=== PATIENT | male | born 1965 | race Asian ===

== ENCOUNTER 2018-09-01 11:48 | Emergency (ER) | payer OTHER ==
[~2018-09-01] VITALS: Ht 175.3 cm; Wt 89.8 kg
--- NOTE | 2018-09-01 12:16 | ED Upper Extremity ---
General Stated Complaint: FALL,R SHOULDER PAIN Source: patient Exam Limitations: no limitations History of Present Illness Date Seen by Provider: Sep 01, 2018 Time Seen by Provider: 12:12 Initial Comments To ER with right shoulder pain. Began last night after he fell landing on the right elbow. There was no direct injury such as landing on the right shoulder. However he has pain in the right shoulder, not in the elbow. At rest there is no pain in the right shoulder. The pain is with abduction and forward flexion of the arm at the elbow. Onset: just prior to arrival Severity: moderate Pain/Injury Location: right shoulder Method of Injury: fell Modifying Factors: Worse With Movement Allergies and Home Medications Patient Home Medication List Home Medication List Reviewed: Yes Review of Systems Constitutional: see HPI EENTM: see HPI Respiratory: no symptoms reported Cardiovascular: no symptoms reported Genitourinary: no symptoms reported Musculoskeletal: see HPI, joint pain Skin: no symptoms reported Psychiatric/Neurological: No Symptoms Reported Past Faxqrbs-Xknzcv-Ztsfju Hx Patient Social History Recent Foreign Travel: No Contact w/Someone Who Travel: No Physical Exam Vital Signs Vital Signs - First Documented 09/01/18 12:05 Temp 97.5 Pulse 82 Resp 18 B/P (MAP) 146/107 (120) Pulse Ox 98 Capillary Refill : Height, Weight, BMI Height: '" Weight: lbs. oz. kg; BMI Method: General Appearance: WD/WN, no apparent distress HEENT: PERRL/EOMI, normal ENT inspection Neck: non-tender, full range of motion Respiratory: no respiratory distress, no accessory muscle use Shoulder: limited ROM (minimal tenderness to palpation over the acromioclavicular joint. Most of the pain is at the anterior and lateral shoulder. No pain posteriorly.) Elbow/Forearm: normal inspection, non-tender, Right Wrist: Yes normal inspection, Yes non-tender Hand: normal inspection, non-tender Progress/Results/Core Measures Results/Orders My Orders Orders - ESTHELA POWERS APRN Shoulder, Right, 3 Views (09/01/18 12:08) Ct Extremity Upper Right Wo (09/01/18 12:54) Vital Signs/I&O 09/01/18 12:05 Temp 97.5 Pulse 82 Resp 18 B/P (MAP) 146/107 (120) Pulse Ox 98 Diagnostic Imaging Diagonstic Imaging: Xray Comments NAME: SYDNEY KENNY [facility] REC#: [id number] PT STATUS: REG ER : 1965 PHYSICIAN: ESTHELA POWERS APRN ADMIT DATE: 09/01/18/ER Draft Date of Exam:09/01/18 SHOULDER, RIGHT, 3 VIEWS EXAMINATION: Right shoulder radiographs, 3 views. COMPARISON: None. HISTORY: 53-year-old male, fall. Right shoulder pain. FINDINGS: The acromioclavicular joint is normally aligned. There are no prominent acromioclavicular degenerative changes. The scapular Y-view is suboptimally positioned. The humeral head does project anteriorly on the scapular Y view. Correlation for shoulder dislocation would be recommended. There is an ossification adjacent to the inferior glenoid. This potentially could relate to an osteophyte; however, particularly if there is clinical concern for dislocation, this potentially could relate to a fracture fragment. There is no otherwise identified potential acute fracture. IMPRESSION: 1. Suboptimal positioning of the scapular Y view. The humeral head does project anteriorly. Recommend correlation for possible shoulder dislocation. If further imaging is needed, dedicated axillary view or CT right shoulder without contrast is recommended. 2. Ossification adjacent to the inferior glenoid potentially relating to an osteophyte although particularly in the setting of shoulder dislocation, a fracture would be difficult to exclude. 3. Normally aligned acromioclavicular joint. Dictated on workstation # [id number] Dict: 09/01/18 1225 Trans: 09/01/18 1240 [facility] [id number] Interpreted by: RUBI BAILON MD Electronically signed by: NAME: SYDNEY KENNY [facility] REC#: [id number] PT STATUS: REG ER : 1965 PHYSICIAN: ESTHELA POWERS APRN ADMIT DATE: 09/01/18/ER Draft Date of Exam:09/01/18 CT EXTREMITY UPPER RIGHT WO PROCEDURE: CT right shoulder without contrast. TECHNIQUE: Multiple contiguous axial images were obtained through the right shoulder without the use of intravenous contrast. Sagittal and coronal reformations were then performed. Date: September 01, 2018. Indication: 53-year-old male, fall. Right shoulder pain. Difficulties with range of motion. Comparison: Right shoulder radiographs September 01, 2018. Findings: The humeral head is normally positioned relative to the glenoid. There is no pronounced glenohumeral joint space loss. There is an osteophyte extending off the inferior glenoid. There is no fracture of the inferior glenoid or otherwise noted. The acromioclavicular joint is normally aligned. There are moderate acromion clavicular degenerative changes with osteophytes projecting approximately 2-3 mm below the joint margin. There is no os acromiale. The visualized portions of the right lung are clear. There is nondiagnostic direct assessment of the rotator cuff tendons on CT. There is no identified fatty atrophy of the rotator cuff musculature. There is no identified obvious fluid collection. Impression: 1. Normally positioned humeral head relative to the glenoid. 2. No acute fracture. 3. Mild glenohumeral osteoarthritis with osteophyte extending off the inferior glenoid. 4. Moderate acromioclavicular degenerative changes with 2-3 mm undersurface osteophytes. No os acromiale. 5. Nondiagnostic direct assessment of the rotator cuff tendons on CT. No prominent fatty atrophy of the rotator cuff musculature. Dictated on workstation # [id number] Dict: 09/01/18 1311 Trans: 09/01/18 1341 [facility] [id number] Interpreted by: RUBI BAILON MD Electronically signed by: Departure Impression Primary Impression: Internal derangement of right shoulder Disposition: 01 HOME, SELF-CARE Condition: Stable Departure-Patient Inst. Decision time for Depature: 13:47 Referrals: NO,LOCAL PHYSICIAN (PCP/Family) Primary Care Physician Patient Instructions: Shoulder Pain (DC), Shoulder Sprain Add. Discharge Instructions: 1. If pain persists beyond the end of this week follow-up with your regular physician to discuss obtaining an MRI to better evaluate the ligaments and labrum in the shoulder. In the meantime ice pack, Tylenol and Motrin, activity as tolerated. ESTHELA POWERS APRN Sep 01, 2018 12:15
--- NOTE | 2018-09-01 12:40 | Diagnostic Imaging Report ---
EXAMINATION: Right shoulder radiographs, 3 views. COMPARISON: None. HISTORY: 53-year-old male, fall. Right shoulder pain. FINDINGS: The acromioclavicular joint is normally aligned. There are no prominent acromioclavicular degenerative changes. The scapular Y-view is suboptimally positioned. The humeral head does project anteriorly on the scapular Y view. Correlation for shoulder dislocation would be recommended. There is an ossification adjacent to the inferior glenoid. This potentially could relate to an osteophyte; however, particularly if there is clinical concern for dislocation, this potentially could relate to a fracture fragment. There is no otherwise identified potential acute fracture. IMPRESSION: 1. Suboptimal positioning of the scapular Y view. The humeral head does project anteriorly. Recommend correlation for possible shoulder dislocation. If further imaging is needed, dedicated axillary view or CT right shoulder without contrast is recommended. 2. Ossification adjacent to the inferior glenoid potentially relating to an osteophyte although particularly in the setting of shoulder dislocation, a fracture would be difficult to exclude. 3. Normally aligned acromioclavicular joint. Dictated by: Dictated on workstation # [id number]
--- NOTE | 2018-09-01 13:41 | Diagnostic Imaging Report ---
PROCEDURE: CT right shoulder without contrast. TECHNIQUE: Multiple contiguous axial images were obtained through the right shoulder without the use of intravenous contrast. Sagittal and coronal reformations were then performed. Date: September 01, 2018. Indication: 53-year-old male, fall. Right shoulder pain. Difficulties with range of motion. Comparison: Right shoulder radiographs September 01, 2018. Findings: The humeral head is normally positioned relative to the glenoid. There is no pronounced glenohumeral joint space loss. There is an osteophyte extending off the inferior glenoid. There is no fracture of the inferior glenoid or otherwise noted. The acromioclavicular joint is normally aligned. There are moderate acromion clavicular degenerative changes with osteophytes projecting approximately 2-3 mm below the joint margin. There is no os acromiale. The visualized portions of the right lung are clear. There is nondiagnostic direct assessment of the rotator cuff tendons on CT. There is no identified fatty atrophy of the rotator cuff musculature. There is no identified obvious fluid collection. Impression: 1. Normally positioned humeral head relative to the glenoid. 2. No acute fracture. 3. Mild glenohumeral osteoarthritis with osteophyte extending off the inferior glenoid. 4. Moderate acromioclavicular degenerative changes with 2-3 mm undersurface osteophytes. No os acromiale. 5. Nondiagnostic direct assessment of the rotator cuff tendons on CT. No prominent fatty atrophy of the rotator cuff musculature. Dictated by: Dictated on workstation # [id number]
[2018-09-01 14:01] VITALS: BP 136/88
== END 2018-09-01 14:01 | disposition home or self-care (01) ==
LOC: ER 11:50
DX: M24.811 Other specific joint derangements of right shoulder, not elsewhere classified (principal); W19.XXXA Unspecified fall, initial encounter
CPT/HCPCS: 73030; 73200

== ENCOUNTER → 2018-09-05 | Outpatient (CLI) | payer OTHER ==
--- NOTE | 2018-09-05 15:02 | Diagnostic Imaging Report ---
PROCEDURE: MRI right joint upper extremity without contrast. TECHNIQUE: Multiplanar, multisequence MR imaging of the right shoulder was performed without contrast. INDICATION: Right shoulder pain after fall. COMPARISON: Right shoulder radiographs from 09/01/2018. FINDINGS: Rotator cuff: Full-thickness tear of the majority of the supraspinatus with the torn fibers retracted to the level of the midhumeral head. A few of the posterior fibers may remain intact. Partial-thickness tearing of the anterior insertional fibers of the infraspinatus are present in its bursal surface. No rotator cuff muscle atrophy. Subscapularis and teres minor are intact. Glenoid labrum: By non-arthrogram imaging, the glenoid labrum appears intact. No para-labral cyst. Long head of biceps: Long head of biceps is normally positioned within the bicipital groove. The intracapsular segment is intact. Bones and cartilage: Humeral head is normal in morphology without fracture or focal osseous lesion. No glenohumeral chondromalacia. Mild hypertrophic degenerative changes of the acromioclavicular joint. Soft tissues: No glenohumeral joint effusion. No MRI findings to suggest adhesive capsulitis. Fluid in the subacromial and subdeltoid space is compatible with full-thickness rotator cuff tear. IMPRESSION: 1. Full-thickness and near-complete tear of the supraspinatus with the torn fibers retracted to the level of the midhumeral head. There is no associated muscle belly atrophy. 2. Low-grade partial-thickness bursal-sided tearing of the anterior infraspinatus is also present. 3. Long head of biceps is intact. Dictated by: Dictated on workstation # [id number]
== END ==
LOC: RAD 12:43
PROVIDERS: ATTEND Nurse Practitioner Family
DX: S46.011A Strain of muscle(s) and tendon(s) of the rotator cuff of right shoulder, initial encounter (principal); W19.XXXA Unspecified fall, initial encounter
CPT/HCPCS: 73221

== ENCOUNTER 2020-08-03 15:40 | Inpatient (IN) | payer OTHER ==
[~2020-08-03] VITALS: Ht 175 cm; Wt 89.2 kg
[2020-08-03] MEDS ORDERED: RT-ALBUTEROL INHALER HFA (VENTOLIN HFA) 18 GM IH ONE (15:55)
[2020-08-03] MEDS ORDERED: LACTATED RINGERS 1,000 ML IV ONE ×3 (16:12→17:31)
--- NOTE | 2020-08-03 16:43 | Diagnostic Imaging Report ---
CLINICAL INDICATION: Patient with Covid and low oxygen saturations. Exam: Portable chest x-ray upright view. Comparisons: None. Findings: There are diffuse groundglass opacifications throughout both lungs concerning for infiltrate. The right heart border is partially obscured. There is no pleural effusion or pneumothorax. Pulmonary vasculature and cardiac silhouette are within normal limits for portable projection. IMPRESSION: There are diffuse bilateral lung groundglass infiltrates concerning for pneumonia. Dictated by: Dictated on workstation # [id number]
[2020-08-03 16:58] LABS: BASOPHILS % (AUTO) 0 % (0-10); EOSINOPHILS % (AUTO) 0 % (0-10); HEMATOCRIT 44 % (40-54); HEMOGLOBIN 15.1 g/dL (13.3-17.7); LYMPHOCYTES # (AUTO) 0.4 10^3/uL (1.0-4.0); LYMPHOCYTES % (AUTO) 4 % (12-44); MEAN CORPUSCULAR HEMOGLOBIN 31 pg (25-34); MEAN CORPUSCULAR HGB CONC 35 g/dL (32-36); MEAN CORPUSCULAR VOLUME 90 fL (80-99); MEAN PLATELET VOLUME 10.3 fL (9.0-12.2); MONOCYTES # (AUTO) 0.3 10^3/uL (0.0-1.0); MONOCYTES % (AUTO) 3 % (0-12); NEUTROPHILS % (AUTO) 93 % (42-75); PLATELET COUNT 254 10^3/uL (130-400); WHITE BLOOD COUNT 11.8 10^3/uL (4.3-11.0)
[2020-08-03 17:06] LABS: ALBUMIN 3.6 GM/DL (3.2-4.5); BILIRUBIN,TOTAL 1.3 MG/DL (0.1-1.0); CALCIUM 9.3 MG/DL (8.5-10.1); CREATININE SERUM 1.34 MG/DL (0.60-1.30); POTASSIUM 3.7 MMOL/L (3.6-5.0); TOTAL PROTEIN 7.2 GM/DL (6.4-8.2)
--- NOTE | 2020-08-03 17:17 | ED General ---
General Chief Complaint: Respiratory Problems Stated Complaint: COVID POSITIVE;LOW O2 SAT Nursing Triage Note: PT CO OF SOA, PT TO ROOM 9 PER W/C PT HAS COVID, STATES SAT 71%, SAT RA 64% PT PALE, RR 38, HAD TEMP EARLIER TODAY 102.2. SX STARTED ON THURSDAY 07/26 AND TESTED + ON SUNDAY. Nursing Sepsis Screen: Possible Sepsis Risk Source of Information: Patient Exam Limitations: No Limitations History of Present Illness Date Seen by Provider: Aug 03, 2020 Time Seen by Provider: 15:50 Initial Comments Here with report of significant shortness of air. Patient is Covid positive with persistent fever. Symptoms started on 07/26/2020. Tested positive a few days later. He has been trying nqfk-uaq-qnjycag therapy and rest at home and that is not helping. noted that his O2 sats were in the 70s and he was in the 60s here on arrival and pale. Noted to be tachycardic and ill. Otherwise very healthy and has no significant medical problems. Patient has been on azithromycin, Medrol Dosepak, albuterol MDI and benzonatate. Timing/Duration: 1 Week Severity: Moderate, Severe Associated Systoms: No Chest Pain; Cough, Fever/Chills; No Nausea/Vomiting; Shortness of Air, Weakness Allergies and Home Medications Allergies Coded Allergies: No Known Drug Allergies (Unverified , 08/03/20) Patient Home Medication List Home Medication List Reviewed: Yes Review of Systems Review of Systems Constitutional: see HPI, chills, fever, weakness EENTM: no symptoms reported Respiratory: cough, short of breath Cardiovascular: No chest pain, No edema Gastrointestinal: No abdominal pain, No nausea, No vomiting Genitourinary: no symptoms reported Musculoskeletal: muscle pain; No neck pain Skin: no symptoms reported All Other Systems Reviewed Negative Unless Noted: Yes Past Eyvbhfq-Wjggdd-Leamta Hx Past Med/Social Hx: Reviewed Nursing Past Med/Soc Hx Patient Social History Alcohol Use: Rarely Uses Recreational Drug Use: No Smoking Status: Never a Smoker Type Used: Smokeless Tobacco Recent Foreign Travel: No Contact w/Someone Who Travel: No Recent Infectious Disease Expo: No Recent Hopitalizations: No Seasonal Allergies Seasonal Allergies: Yes Past Medical History Surgeries: Yes (R KNEE ARTHROSCOPY,L SHOULDER SCOPE) Respiratory: No Cardiac: No Neurological: No Genitourinary: No Gastrointestinal: No Musculoskeletal: No Endocrine: No HEENT: No Cancer: No Psychosocial: No Blood Disorders: No Family Medical History Reviewed Nursing Family Hx Physical Exam-Suspected Sepsis Physical Exam Vital Signs Vital Signs - First Documented 08/03/20 08/03/20 08/03/20 15:45 16:00 16:08 Temp 36.4 Pulse 112 Resp 38 B/P (MAP) 122/76 (91) Pulse Ox 92 O2 Delivery OxyMask O2 Flow Rate 15.00 FiO2 100 Capillary Refill : Less Than 3 Seconds Blood Pressure Mean: 91 Height, Weight, BMI Height: 5'9.00" Weight: 198lbs. oz. 89.775473gj; 29.00 BMI Method:Stated General Appearance: WD/WN, Moderate Distress HEENT: PERRL/EOMI, Pharynx Normal Neck: Non Tender, Supple Respiratory: Crackles (Bilateral versus), Respiratory Distress Cardiovascular: No Murmur, Tachycardia Gastrointestinal: Non Tender, Soft Back: Normal Inspection, No CVA Tenderness, No Vertebral Tenderness Extremity: Normal Range of Motion, Non Tender Neurologic/Psychiatric: Alert, Oriented x3 Skin: normal color, warm/dry Focused Exam Lactate Level 08/03/20 16:00: Lactic Acid Level Laboratory Tests Test 08/03/20 16:00 Progress/Results/Core Measures Suspected Sepsis Recent Fever Within 48 Hours: Yes Infection Criteria Present: Documented Infection New/Unexplained Altered Menta: No Sepsis Screen: Possible Sepsis Risk SIRS Temperature: Pulse: 112 Respiratory Rate: 38 Laboratory Tests 08/03/20 16:00: White Blood Count 11.8H Blood Pressure 122 /76 Mean: 91 08/03/20 16:00: Laboratory Tests 08/03/20 16:00: Creatinine 1.34H, Platelet Count 254, Total Bilirubin 1.3H Results/Orders Lab Results Laboratory Tests Test 08/03/20 16:00 Range/Units White Blood Count 11.8 H 4.3-11.0 10^3/uL Red Blood Count 4.86 4.30-5.52 10^6/uL Hemoglobin 15.1 13.3-17.7 g/dL Hematocrit 44 40-54 % Mean Corpuscular Volume 90 80-99 fL Mean Corpuscular Hemoglobin 31 25-34 pg Mean Corpuscular Hemoglobin Concent 35 32-36 g/dL Red Cell Distribution Width 12.7 10.0-14.5 % Platelet Count 254 130-400 10^3/uL Mean Platelet Volume 10.3 9.0-12.2 fL Immature Granulocyte % (Auto) 1 % Neutrophils (%) (Auto) 93 H 42-75 % Lymphocytes (%) (Auto) 4 L 12-44 % Monocytes (%) (Auto) 3 0-12 % Eosinophils (%) (Auto) 0 0-10 % Basophils (%) (Auto) 0 0-10 % Neutrophils # (Auto) 11.0 H 1.8-7.8 10^3/uL Lymphocytes # (Auto) 0.4 L 1.0-4.0 10^3/uL Monocytes # (Auto) 0.3 0.0-1.0 10^3/uL Eosinophils # (Auto) 0.0 0.0-0.3 10^3/uL Basophils # (Auto) 0.0 0.0-0.1 10^3/uL Immature Granulocyte # (Auto) 0.1 0.0-0.1 10^3/uL Sodium Level 133 L 135-145 MMOL/L Potassium Level 3.7 3.6-5.0 MMOL/L Chloride Level 97 L 98-107 MMOL/L Carbon Dioxide Level 25 21-32 MMOL/L Anion Gap 11 5-14 MMOL/L Blood Urea Nitrogen 18 7-18 MG/DL Creatinine 1.34 H 0.60-1.30 MG/DL Estimat Glomerular Filtration Rate 56 BUN/Creatinine Ratio 13 Glucose Level 159 H 70-105 MG/DL Calcium Level 9.3 8.5-10.1 MG/DL Corrected Calcium 9.6 8.5-10.1 MG/DL Total Bilirubin 1.3 H 0.1-1.0 MG/DL Aspartate Amino Transf (AST/SGOT) 54 H 5-34 U/L Alanine Aminotransferase (ALT/SGPT) 107 H 0-55 U/L Alkaline Phosphatase 127 40-136 U/L Total Protein 7.2 6.4-8.2 GM/DL Albumin 3.6 3.2-4.5 GM/DL My Orders Orders - ELAINE GRIMES MD Albuterol Inhaler (Ventolin Hfa) (08/03/20 15:55) Lactated Ringers (Lr 1000 Ml Iv Solution (08/03/20 16:12) Cbc With Automated Diff (08/03/20 16:16) Comprehensive Metabolic Panel (08/03/20 16:16) Blood Culture (08/03/20 16:16) Sputum Culture (08/03/20 16:16) Urinalysis (08/03/20 16:16) Urine Culture (08/03/20 16:16) Protime With Inr (08/03/20 16:16) Partial Thromboplastin Time (08/03/20 16:16) Chest 1 View, Ap/Pa Only (08/03/20 16:16) Ed Iv/Invasive Line Start (08/03/20 16:16) Ed Iv/Invasive Line Start (08/03/20 16:16) Vital Signs Adult Sepsis Patie Q15M (08/03/20 16:16) O2 (08/03/20 16:16) Remove Rings In Anticipation O (08/03/20 16:16) Lactic Acid Analyzer (08/03/20 16:16) Lactated Ringers (Lr 1000 Ml Iv Solution (08/03/20 16:16) Convalescent Plasma (08/03/20 16:16) Abo Rh Type (08/03/20 16:16) Procalcitonin (Pct) (08/03/20 16:48) Hs C Reactive Protein (08/03/20 16:53) Manual Differential (08/03/20 16:00) Medications Given in ED Current Medications Medications Dose Ordered Sig/Johnnie Route Start Time Stop Time Status Last Admin Dose Admin Lactated Ringer's 1,000 ml @ 0 mls/hr Q0M ONCE IV 08/03/20 16:16 08/03/20 16:21 DC 08/03/20 16:21 1,000 MLS/HR Vital Signs/I&O 08/03/20 08/03/20 08/03/20 15:45 16:00 16:08 Temp 36.4 Pulse 112 Resp 38 B/P (MAP) 122/76 (91) Pulse Ox 92 98 O2 Delivery OxyMask OxyMask Vapotherm O2 Flow Rate 15.00 15.00 40.00 FiO2 100 Capillary Refill : Less Than 3 Seconds Blood Pressure Mean: 91 Progress Note : Progress Note Seen and evaluated. IV, labs, blood cultures and lactic acid ordered. Patient placed on high flow O2 and placed in prone position to get O2 saturations in the mid 80s. Albuterol MDI 4 puffs via spacer given. Patient initiated on Vapotherm at 40 L and 100% which did improve his sats to the mid 90s. After x- ray, patient's O2 saturations had improved into the upper 90s and he was able to tolerate in the sitting position on Vapotherm at max settings. Monitor patient. 1646: I did discuss the case with Dr. Hager. I have discussed risk and benefits of convalescent plasma as well as remdesivir. Patient has consented to both after discussion. I have ordered convalescent plasma and Dr. Hager will order remdesivir. Patient to be admitted to the ICU. We are pending labs currently and he has been on antibiotics so we will initiate Zosyn initially given his fairly pronounced disease and concerns for pneumonia. I did inform the patient of the need for admission and he has agreed. Admit, inpatient status. Diagnostic Imaging Diagonstic Imaging: Xray Plain Films/CT/US/NM/MRI: chest Comments [facility], [place] NAME: SYDNEY KENNY [facility] REC#: [id number] PT STATUS: REG ER : 1965 PHYSICIAN: ELAINE GIRMES MD ADMIT DATE: 08/03/20/ER Draft Date of Exam:08/03/20 CHEST 1 VIEW, AP/PA ONLY CLINICAL INDICATION: Patient with Covid and low oxygen saturations. Exam: Portable chest x-ray upright view. Comparisons: None. Findings: There are diffuse groundglass opacifications throughout both lungs concerning for infiltrate. The right heart border is partially obscured. There is no pleural effusion or pneumothorax. Pulmonary vasculature and cardiac silhouette are within normal limits for portable projection. IMPRESSION: There are diffuse bilateral lung groundglass infiltrates concerning for pneumonia. Dictated on workstation # [id number] Dict: 08/03/20 1639 Trans: 08/03/20 1643 [facility] [id number] Interpreted by: KUMAR PATTON MD Electronically signed by: Departure Communication (Admissions) Time/Spoke to Admitting Phy: 16:46 Impression Primary Impression: Pneumonia due to COVID-19 virus Additional Impression: Respiratory failure with hypoxia Qualified Codes: J96.01 - Acute respiratory failure with hypoxia Disposition: 09 ADMITTED INPATIENT Condition: Critical Admissions Decision to Admit Reason: Admit from ER (General) Decision to Admit/Date: Aug 03, 2020 Time/Decision to Admit Time: 16:46 Departure-Patient Inst. Referrals: FANTA MURPHY DO (PCP/Family) Primary Care Physician ELAINE GRIMES MD Aug 03, 2020 17:17
[2020-08-03 17:20] LABS: INR 1.2 (0.8-1.4); PROTHROMBIN TIME PATIENT 15.8 SEC (12.2-14.7)
[2020-08-03] MEDS ORDERED: NS (IVPB) 250 ML ONE ×2 (17:32→20:08)
[2020-08-03] MEDS ORDERED: PIPERACILLIN/TAZO 4.5 GM VIAL (ZOSYN) IV ONE (17:32)
[2020-08-03] MEDS ORDERED: PIPERACILLIN SODIUM/TAZOBACTAM 4.5 GM in NS (IVPB) 100 ML IV ONE (17:45)
[2020-08-03] MEDS ORDERED: ENOXAPARIN 100 MG/1 ML (LOVENOX) SYR SC ONE (18:00)
[2020-08-03 18:06] LABS: LYMPHOCYTES % (MANUAL) 5 %; MONOCYTES % (MANUAL) 1 %; NEUTROPHILS % (MANUAL) 94 %; RBC MORPH NORMAL
[2020-08-03] MEDS ORDERED: REMDESIVIR INJ 200 MG in NS (IVPB) 210 ML IV ONE (18:15)
--- NOTE | 2020-08-03 18:22 | NUR ---
UPDATED ON PT CONDITION, PT TO GO TO ICU FOR FURTHER CARE.
--- NOTE | 2020-08-03 19:21 | NUR ---
PATIENT ARRIVAL TO THE ICU. VERBALIZED UNDERSTANDING OF TREATMENT. ASSESSMENT COMPLETED.
--- NOTE | 2020-08-03 19:40 | NUR ---
SPOKE WITH JESÚS. INFORMATION PROVIDED TO THIS RN AND QUESTIONS ANSWERED FOR THE . PASSWORD SET UP FOR ACCOUNT AT THIS TIME.
[2020-08-03 19:55] VITALS: BP 122/76
[2020-08-03] MEDS ORDERED: ACETAMINOPHEN 500 MG TAB (TYLENOL) PO PRN (20:00)
[2020-08-03] MEDS ORDERED: ONDANSETRON 4 MG/2 ML (SDV) Z0FRAN IVP PRN (20:00)
[2020-08-03] MEDS ORDERED: LACTATED RINGERS 1,000 ML IV SCH (20:00)
[2020-08-03] MEDS ORDERED: EPINEPHrine 1 MG INJECTION 4 MG in NS (IVPB) 248 ML IV SCH (20:15)
[2020-08-03] MEDS ORDERED: RT-ALBUTEROL INHALER HFA (VENTOLIN HFA) 18 GM IH PRN (20:15)
[2020-08-03 20:26] VITALS: BP 133/93
[2020-08-03 20:30] VITALS: BP 125/92
[2020-08-03 20:42] VITALS: BP 125/92
[2020-08-03 21:30] VITALS: BP 131/93
[2020-08-03] MEDS: NOREPINEPHRINE 4 MG/250 ML 250 ML IV SCH (21:36)
[2020-08-03] MEDS: VASOPRESSIN INJECTION 20 UNIT in NS (IVPB) 100 ML IV SCH (21:36)
[2020-08-03] MEDS: BENZONATATE 100 MG (TESSALON) CAPSULE PO SCH (23:06)
[2020-08-03] MEDS: RT-ALBUTEROL INHALER HFA (VENTOLIN HFA) 18 GM IH SCH (23:07)
[2020-08-04] MEDS: PIPERACILLIN/TAZOBACTAM (BULK) 4.5 GM in NS (IVPB) 100 ML IV SCH ×3 (00:19→17:35)
--- NOTE | 2020-08-04 01:30 | NUR ---
O2 SATURATIONS DECREASING TO THE LOW 90'S. WENT INTO ROOM, ASSESSED PATIENT. BREATH SOUNDS CONTINUE TO BE DIMINISHED. SPOKE IN REGARDS TO PRONING IN ATTEMPT TO HELP WITH O2 SATURATION. AGREEABLE TO TREATMENT PLAN. INCREASE IN FEVER TO 37.9 C. COLD WASH CLOTHES PLACED AND AIR IN ROOM TURNED DOWN AT THIS TIME. O2 SATURATIONS INCREASED TO THE MID 90'S WITH PRONING. WILL CONTINUE TO MONITOR.
[2020-08-04] MEDS ORDERED: guaiFENesin SYRUP 100 MG/5 ML 10 ML (ROBITUSSIN SF) ONE (02:17)
[2020-08-04] MEDS ORDERED: ACETAMINOPHEN 500 MG TAB (TYLENOL) ONE (02:17)
[2020-08-04] MEDS: ACETAMINOPHEN 500 MG TAB (TYLENOL) PO PRN (02:25)
[2020-08-04] MEDS ORDERED: guaiFENesin SYRUP 100 MG/5 ML 10 ML (ROBITUSSIN SF) PO ONE (02:30)
[2020-08-04 03:23] LABS: BASOPHILS % (AUTO) 0 % (0-10); EOSINOPHILS % (AUTO) 0 % (0-10); HEMATOCRIT 39 % (40-54); HEMOGLOBIN 13.5 g/dL (13.3-17.7); LYMPHOCYTES # (AUTO) 0.4 10^3/uL (1.0-4.0); LYMPHOCYTES % (AUTO) 4 % (12-44); MEAN CORPUSCULAR HEMOGLOBIN 31 pg (25-34); MEAN CORPUSCULAR HGB CONC 35 g/dL (32-36); MEAN CORPUSCULAR VOLUME 89 fL (80-99); MEAN PLATELET VOLUME 9.7 fL (9.0-12.2); MONOCYTES # (AUTO) 0.3 10^3/uL (0.0-1.0); MONOCYTES % (AUTO) 3 % (0-12); NEUTROPHILS # (AUTO) 8.8 10^3/uL (1.8-7.8); NEUTROPHILS % (AUTO) 92 % (42-75); PLATELET COUNT 229 10^3/uL (130-400); WHITE BLOOD COUNT 9.6 10^3/uL (4.3-11.0)
[2020-08-04 03:32] LABS: ALBUMIN 3.3 GM/DL (3.2-4.5); CHLORIDE 102 MMOL/L (98-107); POTASSIUM 3.9 MMOL/L (3.6-5.0); SODIUM 136 MMOL/L (135-145)
[2020-08-04 03:34] LABS: CALCIUM 8.9 MG/DL (8.5-10.1)
[2020-08-04 03:35] LABS: GLUCOSE 159 MG/DL (70-105); TOTAL PROTEIN 6.5 GM/DL (6.4-8.2)
[2020-08-04 03:36] LABS: CARBON DIOXIDE 21 MMOL/L (21-32)
[2020-08-04 03:38] LABS: ALKALINE PHOSPHATASE 117 U/L (40-136); PHOSPHORUS 2.1 MG/DL (2.3-4.7)
[2020-08-04 03:39] LABS: CREATININE SERUM 0.94 MG/DL (0.60-1.30); GFR ESTIMATED > 60
[2020-08-04 03:40] LABS: BUN/CREATININE RATIO 17
[2020-08-04 03:41] LABS: ALANINE AMINOTRANSFERASE 81 U/L (0-55); MAGNESIUM 1.8 MG/DL (1.6-2.4)
[2020-08-04] MEDS ORDERED: IBUPROFEN 600 MG (MOTRIN) TAB PO ONE (04:14)
--- NOTE | 2020-08-04 04:14 | Pulmonary Consultation ---
History of Present Illness History of Present Illness Date Seen by Provider: Aug 04, 2020 Time Seen by Provider: 04:09 Date of Admission History of Present Illness 55yo who tested positive on COVID on presented to ED secondary to worsening SOB and fevers. He was found to be hypoxic with Sp02 64% and tachycardic. Fever was 102.2. Symptoms started on Sunday. No prior hx like this in the past. Patient has been on azithromycin, Medrol Dosepak, albuterol MDI and benzonatate. Denies CP N/V. Allergies and Home Medications Allergies Coded Allergies: No Known Drug Allergies (Unverified , 08/03/20) Home Medications Acetaminophen 325 Mg Tablet, 325-650 MG PO Q6H PRN for PAIN-MILD (1-4) OR TEMPATURE, (Reported) Albuterol Sulfate 18 Gm Hfa.aer.ad, 2 PUFF INH Q6H PRN for SHORTNESS OF BREATH, (Reported) Ascorbic Acid 250 Mg Tab.chew, 250 MG PO DAILY, (Reported) Aspirin 81 Mg Tablet.dr, 81 MG PO DAILY, (Reported) Azithromycin 250 Mg Tablet, 250 MG PO DAILY, (Reported) FILLED 08-03-2020 #6/5 DAY SUPPLY Benzonatate 100 Mg Capsule, 100 MG PO Q8H PRN for COUGH, (Reported) Cholecalciferol (Vitamin D3) 25 Mcg Tablet, 25 MCG PO DAILY, (Reported) Loratadine 10 Mg Tablet, 10 MG PO DAILY PRN for ALLERGY SYMPTOMS, (Reported) Methylprednisolone 4 Mg Tab.ds.pk, MG PO UD, (Reported) FILLED 07-30-2020 #21/6 DAY SUPPLY Triamcinolone Acetonide 10.8 Ml [place], 1 SPRAY NSEACH DAILY PRN for ALLERGY SYMPTOMS, (Reported) Zinc 50 Mg Tablet, 50 MG PO DAILY, (Reported) Past [place]-Eextfv-Ptybav Hx Past Med/Social Hx: Reviewed Nursing Past Med/Soc Hx Patient Social History Alcohol Use: Rarely Uses Recreational Drug Use: No Smoking Status: Never a Smoker Type Used: Smokeless Tobacco Recent Foreign Travel: No Contact w/Someone Who Travel: No Recent Infectious Disease Expo: No Recent Hopitalizations: No Seasonal Allergies Seasonal Allergies: Yes Past Medical History Surgeries: Yes (R KNEE ARTHROSCOPY,L SHOULDER SCOPE) Respiratory: No Cardiac: No Neurological: No Genitourinary: No Gastrointestinal: No Musculoskeletal: No Endocrine: No HEENT: No Cancer: No Psychosocial: No Blood Disorders: No Family Medical History Reviewed Nursing Family Hx Review of Systems Time Seen by Provider: 04:13 Constitutional: Fever, Chills, Sweats, Weakness, Malaise, Other Eyes: No: Pain, Vision change, Conjunctivae inflammation, Eyelid inflammation, Other, Redness ENT: Nose congestion; No: Ear pain, Ear discharge, Nose pain, Nose discharge, Mouth pain, Mouth swelling, Throat pain, Throat swelling, Other Respiratory: Cough, Dry, Shortness of breath, SOB with excertion; No: Wheezing, Hemoptysis, Pleuritic Pain, Sputum, Wheezing, Other Cardiovascular: Paroxysmal Noc. Dyspnea; No: Chest Pain, Palpitations, Orthopnea, Edema, Lt Headedness, Other Gastrointestinal: No: Nausea, Vomiting, Abdominal Pain, Diarrhea, Constipation, Melena, Hematochezia, Other Genitourinary: No Dysuria, No Frequency, No Incontinence, No Hematuria, No Retention, No Other Sepsis Event Evaluation Height, Weight, BMI Height: 5'9.00" Weight: 198lbs. oz. 89.555298ye; 29.00 BMI Method:Stated Exam Exam Vital Signs Date Time Temp Pulse Resp B/P (MAP) Pulse Ox O2 Delivery O2 Flow Rate FiO2 08/04/20 03:43 39.5 Vapotherm 40.00 100.00 08/04/20 02:36 37.7 Vapotherm 40.00 100.00 08/04/20 02:25 37.9 08/04/20 01:50 93 Vapotherm 40.00 100 08/04/20 01:41 37.9 Vapotherm 40.00 100.00 08/04/20 01:00 97 08/04/20 00:36 97 Vapotherm 40.00 100 08/03/20 23:15 Vapotherm 40.00 100.00 08/03/20 23:13 Vapotherm 40.00 90.00 08/03/20 21:35 36.4 Vapotherm 40.00 80.00 08/03/20 21:30 36.6 74 22 131/93 97 Vapotherm 40.00 90 08/03/20 20:42 36.6 72 16 125/92 97 Vapotherm 40.00 90 08/03/20 20:30 36.4 78 16 125/92 (103) 98 Vapotherm 40.00 90.00 08/03/20 20:30 36.4 Vapotherm 40.00 90.00 08/03/20 20:26 36.4 73 19 133/93 98 Vapotherm 40.00 100 08/03/20 19:55 112 100 08/03/20 19:30 89 08/03/20 19:21 Vapotherm 40.00 100 08/03/20 19:21 Vapotherm 40.00 100.00 08/03/20 19:21 36.4 Vapotherm 40.00 100.00 08/03/20 18:50 93 20 148/96 96 08/03/20 17:54 94 Vapotherm 40.00 100 08/03/20 16:08 98 Vapotherm 40.00 100 08/03/20 16:00 92 OxyMask 15.00 08/03/20 15:45 36.4 112 38 122/76 (91) OxyMask 15.00 I & O 08/04/20 07:00 Intake Total 2400 ml Output Total 1150 ml Balance 1250 ml Height & Weight Height: 5'9.00" Weight: 198lbs. oz. 89.520156ot; 29.00 BMI Method:Stated General Appearance: WD/WN, Moderate Distress HEENT: PERRL/EOMI, Pharynx Normal Neck: Non Tender, Supple Respiratory: Crackles (Bilateral versus), Respiratory Distress Cardiovascular: No Murmur, Tachycardia Capillary Refill: Less Than 3 Seconds Gastrointestinal: normal bowel sounds, non tender, soft Extremity: Normal Range of Motion, Non Tender Neurologic/Psychiatric: Alert, Oriented x3 Skin: Normal Color, Warm/Dry Lymphatic: No Adenopathy Results Lab Laboratory Tests 08/03/20 16:00 08/04/20 03:12 Assessment/Plan Assessment/Plan Acute respiratory failure secondary to COVID PNA and ARDS -Start Remdesivir and CVP -Continue Zosyn -Awake proning -start BiPAP -CXR - shows extensive bilateral infiltrates LEONARDO FAIRBANKS DO Aug 04, 2020 04:14
[2020-08-04] MEDS: IBUPROFEN 600 MG (MOTRIN) TAB PO SCH ×3 (04:22→18:20)
[2020-08-04] MEDS: NOREPINEPHRINE 4 MG/250 ML 250 ML IV SCH ×3 (04:26→19:00)
[2020-08-04] MEDS: MAGNESIUM 1 GM/100 ML IVPB 100 ML IV SCH (04:27)
[2020-08-04] MEDS: VASOPRESSIN INJECTION 20 UNIT in NS (IVPB) 100 ML IV SCH ×3 (04:27→21:22)
[2020-08-04] MEDS: POTASSIUM CL 10MEQ/50ML IVPB 50 ML IV SCH (04:27)
[2020-08-04] MEDS: KCL 20 MEQ TAB (K-DUR) PO SCH (04:28)
[2020-08-04 04:55] LABS: ABG BASE EXCESS 2.1 MMOL/L (-2.5-2.5); ABG OXYGEN SATURATION 96 % (94-100); ABG PCO2 40 MMHG (35-45); ABG PH 7.43 (7.37-7.43); ABG PO2 84 MMHG (79-93); ABG TCO2 27.3 MMOL/L (21.0-31.0)
[2020-08-04 04:57] LABS: ALLENS TEST POSITIVE; INSPIRED O2 100% VAPODERM; PATIENT TEMP 36.8; VENTILATOR NO
[2020-08-04] MEDS: RT-ALBUTEROL INHALER HFA (VENTOLIN HFA) 18 GM IH SCH ×4 (08:02→22:21)
[2020-08-04] MEDS: dexAMETHasone INJECTION 20 MG in NS (IVPB) 50 ML IV SCH (08:15)
[2020-08-04] MEDS: PANTOPRAZOLE 40 MG (PROTONIX) VIAL IV SCH (08:16)
[2020-08-04] MEDS: BENZONATATE 100 MG (TESSALON) CAPSULE PO SCH ×3 (08:16→20:34)
[2020-08-04] MEDS ORDERED: dexAMETHasone 6 MG TAB (DECADRON) PO SCH (09:00)
[2020-08-04 14:08] VITALS: BP 121/67
[2020-08-04] MEDS ORDERED: ZINC50TA58 PO (14:10)
[2020-08-04] MEDS ORDERED: BENZ-36 PO (14:10)
[2020-08-04] MEDS ORDERED: ALBU18HF2 INH (14:10)
[2020-08-04] MEDS ORDERED: METH4TAB10 PO (14:10)
[2020-08-04] MEDS ORDERED: LORA10TA76 PO (14:10)
[2020-08-04] MEDS ORDERED: ASCO250T17 PO (14:10)
[2020-08-04] MEDS ORDERED: ACET325T38 PO (14:10)
[2020-08-04] MEDS ORDERED: AZIT250T12 PO (14:10)
[2020-08-04] MEDS ORDERED: ASPI-1238 PO (14:10)
[2020-08-04] MEDS ORDERED: CHOL10002 PO (14:10)
[2020-08-04] MEDS ORDERED: TRIA10.8 NSEACH (14:10)
--- NOTE | 2020-08-04 14:11 | NUR ---
UNABLE TO REACH PT ON HIS ROOM PHONE- I TRIED THE CELL # WE HAVE ON FILE AND HIS (JSEÚS) ANSWERED. JESÚS LISTED HIS MEDICATIONS, AND I WENT THRU THE EXT MED HISTORY TO COMPLETE THE MED REC ACCORDING TO JESÚS THE PT DOESNT TAKE ANY MAINTENANCE MEDICATIONS- AND THE ONLY THING HE HAS BEEN ON RECENTLY IS DUE TO COVID OTC MEDS: NASACORT PRN CLARITIN PRN TYLENOL VIT C VIT D ZINC ASPIRIN 81
[2020-08-04] MEDS ORDERED: ENOXAPARIN 40 MG/0.4 ML (LOVENOX) SYR SC SCH (14:15)
[2020-08-04] MEDS: REMDESIVIR INJ 100 MG in NS (IVPB) 230 ML IV SCH (18:15)
[2020-08-04] MEDS: guaiFENesin/DM (ROBITUSSIN DM) 10 ML UDC PO PRN (20:35)
[2020-08-05] MEDS: IBUPROFEN 600 MG (MOTRIN) TAB PO SCH (00:06)
[2020-08-05] MEDS: PIPERACILLIN/TAZOBACTAM (BULK) 4.5 GM in NS (IVPB) 100 ML IV SCH ×4 (00:06→23:30)
[2020-08-05] MEDS: NOREPINEPHRINE 4 MG/250 ML 250 ML IV SCH (01:41)
[2020-08-05] MEDS: RT-ALBUTEROL INHALER HFA (VENTOLIN HFA) 18 GM IH SCH ×6 (02:30→22:45)
[2020-08-05] MEDS: VASOPRESSIN INJECTION 20 UNIT in NS (IVPB) 100 ML IV SCH (04:13)
[2020-08-05 04:54] LABS: CHLORIDE 103 MMOL/L (98-107); POTASSIUM 4.2 MMOL/L (3.6-5.0); SODIUM 139 MMOL/L (135-145)
[2020-08-05 04:55] LABS: CALCIUM 9.3 MG/DL (8.5-10.1)
[2020-08-05 04:56] LABS: GLUCOSE 176 MG/DL (70-105)
[2020-08-05 04:57] LABS: CARBON DIOXIDE 20 MMOL/L (21-32)
[2020-08-05 04:59] LABS: PHOSPHORUS 3.2 MG/DL (2.3-4.7)
[2020-08-05 05:00] LABS: CREATININE SERUM 1.07 MG/DL (0.60-1.30); GFR ESTIMATED > 60
[2020-08-05 05:01] LABS: BUN/CREATININE RATIO 22
[2020-08-05 05:01] LABS: BASOPHILS % (AUTO) 0 % (0-10); EOSINOPHILS % (AUTO) 0 % (0-10); HEMATOCRIT 41 % (40-54); HEMOGLOBIN 13.9 g/dL (13.3-17.7); LYMPHOCYTES # (AUTO) 0.5 10^3/uL (1.0-4.0); LYMPHOCYTES % (AUTO) 4 % (12-44); MEAN CORPUSCULAR HEMOGLOBIN 30 pg (25-34); MEAN CORPUSCULAR HGB CONC 34 g/dL (32-36); MEAN CORPUSCULAR VOLUME 90 fL (80-99); MEAN PLATELET VOLUME 10.3 fL (9.0-12.2); MONOCYTES # (AUTO) 0.3 10^3/uL (0.0-1.0); MONOCYTES % (AUTO) 2 % (0-12); NEUTROPHILS # (AUTO) 11.8 10^3/uL (1.8-7.8); NEUTROPHILS % (AUTO) 93 % (42-75); PLATELET COUNT 250 10^3/uL (130-400); WHITE BLOOD COUNT 12.7 10^3/uL (4.3-11.0)
[2020-08-05 05:02] LABS: MAGNESIUM 2.2 MG/DL (1.6-2.4)
[2020-08-05] MEDS: KCL 20 MEQ TAB (K-DUR) PO SCH (05:17)
[2020-08-05] MEDS: MAGNESIUM 1 GM/100 ML IVPB 100 ML IV SCH (05:17)
[2020-08-05] MEDS: POTASSIUM CL 10MEQ/50ML IVPB 50 ML IV SCH (05:17)
--- NOTE | 2020-08-05 05:30 | Pulmonary Progress Note ---
Subjective Time Seen by a Provider: 05:25 Subjective/Events-last exam Pt is requiring 100% Vapotherm. Sepsis Event Evaluation Height, Weight, BMI Height: 5'9.00" Weight: 198lbs. oz. 89.983764te; 29.00 BMI Method:Stated Focused Exam Lactate Level 08/03/20 16:00: Lactic Acid Level 2.19*H 08/03/20 18:22: Lactic Acid Level 1.35 Exam Exam Vital Signs Date Time Temp Pulse Resp B/P (MAP) Pulse Ox O2 Delivery O2 Flow Rate FiO2 08/05/20 04:46 35.1 08/05/20 04:00 Vapotherm 40.00 100 08/05/20 04:00 92 14 98/77 96 Vapotherm 40.00 100.00 08/05/20 03:00 93 22 107/70 95 Vapotherm 40.00 100.00 08/05/20 02:30 91 40.00 100 08/05/20 02:00 80 19 112/69 96 Vapotherm 40.00 100.00 08/05/20 01:00 70 19 108/73 93 Vapotherm 40.00 100.00 08/05/20 01:00 71 08/05/20 00:15 35.1 08/05/20 00:00 92 Vapotherm 40.00 100 08/05/20 00:00 99 37 123/89 94 Vapotherm 40.00 100.00 08/04/20 23:00 95 29 123/78 89 Vapotherm 40.00 100.00 08/04/20 22:22 91 Vapotherm 40.00 100 08/04/20 22:00 65 26 96/56 Vapotherm 40.00 100.00 08/04/20 21:00 89 17 116/75 92 Vapotherm 40.00 100.00 08/04/20 20:04 35.7 08/04/20 20:00 92 Vapotherm 40.00 100 08/04/20 20:00 85 29 113/75 92 Vapotherm 40.00 100.00 08/04/20 19:00 78 27 115/45 94 Vapotherm 40.00 100.00 08/04/20 19:00 100 08/04/20 18:59 92 Vapotherm 40.00 100 08/04/20 18:00 84 35 119/59 100 Vapotherm 40.00 100.00 08/04/20 17:00 87 35 116/78 91 Vapotherm 40.00 90.00 08/04/20 16:16 35.5 08/04/20 16:03 35.4 90 30 116/78 92 Vapotherm 40.00 100.00 08/04/20 16:00 92 Vapotherm 40.00 100 08/04/20 15:17 90 Vapotherm 40.00 100 08/04/20 15:00 90 42 118/73 89 Vapotherm 40.00 90.00 08/04/20 14:08 35.6 88 90 90 08/04/20 14:00 85 46 140/79 88 Vapotherm 40.00 90.00 08/04/20 13:00 88 45 128/85 90 Vapotherm 40.00 90.00 08/04/20 12:37 97 08/04/20 12:00 94 Vapotherm 40.00 90 08/04/20 12:00 107 32 137/84 90 Vapotherm 40.00 90.00 08/04/20 11:34 92 Vapotherm 40.00 90 08/04/20 11:26 35.6 20 121/67 9 Vapotherm 40.00 90.00 08/04/20 11:00 79 121/67 90 Vapotherm 40.00 90.00 08/04/20 10:00 76 118/69 94 Vapotherm 40.00 90.00 08/04/20 09:00 84 25 119/78 98 Vapotherm 40.00 90.00 08/04/20 08:29 77 08/04/20 08:03 93 Vapotherm 40.00 100 08/04/20 08:00 94 Vapotherm 40.00 90 08/04/20 08:00 35.6 70 30 123/76 96 Vapotherm 40.00 90.00 08/04/20 07:00 21 112/73 99 Vapotherm 40.00 100.00 08/04/20 06:33 38.5 Vapotherm 40.00 100.00 08/04/20 06:00 102 25 132/79 96 Vapotherm 40.00 100.00 I & O 08/05/20 07:00 Intake Total 1490 ml Output Total 1350 ml Balance 140 ml Height & Weight Height: 5'9.00" Weight: 198lbs. oz. 89.781578mi; 29.00 BMI Method:Stated General Appearance: WD/WN, Moderate Distress HEENT: PERRL/EOMI, Pharynx Normal Neck: Non Tender, Supple Respiratory: Crackles (Bilateral versus), Respiratory Distress Cardiovascular: No Murmur, Tachycardia Capillary Refill: Less Than 3 Seconds Extremity: Normal Range of Motion, Non Tender Neurologic/Psychiatric: Alert, Oriented x3 Results Lab Laboratory Tests 08/03/20 16:00 08/04/20 03:12 08/05/20 03:35 08/05/20 03:55 Assessment/Plan Assessment/Plan Acute respiratory failure secondary to COVID PNA -Remdesivir -Start BiPAP -Currently on Vapotherm 100% -Continue to Prone -Decadron continue at 20mg daily for now -Repeat DDIMer, ferritin -Increase Lovenox to 40 Q 12 -CVP -Continue Zosyn -BiPAP PRN Metabolic acidosis -Repeat LA -Check UA LEONARDO FAIRBANKS DO Aug 05, 2020 05:30
[2020-08-05 06:36] LABS: BILIRUBIN,URINE NEGATIVE (NEGATIVE); CLARITY,URINE CLEAR; COLOR,URINE YELLOW; GLUCOSE, URINE (UA) NEGATIVE (NEGATIVE); KETONES,URINE TRACE (NEGATIVE); LEUKOCYTE ESTERASE ,URINE NEGATIVE (NEGATIVE); NITRITE,URINE NEGATIVE (NEGATIVE); PH,URINE 5.5 (5-9); PROTEIN,URINE 1+ (NEGATIVE)
[2020-08-05 06:49] LABS: AMORPHOUS SEDIMENT,UR MOD AMOR URATES /LPF; BACTERIA,URINE FEW /HPF; RBC,URINE 0-2 /HPF; SQUAMOUS EPITHELIAL CELL,UR 0-2 /HPF; URIC ACID CRYSTALS,URINE MODERATE /LPF
[2020-08-05] MEDS: LACTATED RINGERS 1,000 ML IV SCH ×2 (08:09→20:51)
[2020-08-05] MEDS: PANTOPRAZOLE 40 MG (PROTONIX) VIAL IV SCH (08:10)
[2020-08-05] MEDS: dexAMETHasone INJECTION 20 MG in NS (IVPB) 50 ML IV SCH (08:10)
[2020-08-05] MEDS: BENZONATATE 100 MG (TESSALON) CAPSULE PO SCH ×3 (08:10→20:47)
[2020-08-05] MEDS: ENOXAPARIN 40 MG/0.4 ML (LOVENOX) SYR SC SCH ×2 (08:11→20:47)
[2020-08-05] MEDS: inSUlin ASPART (NovoLOG) 1 UNIT/0.01 ML (CHARGE PER UNIT) SQ SCH ×3 (12:29→20:47)
[2020-08-05 14:47] VITALS: BP 109/72
--- NOTE | 2020-08-05 16:05 | NUR ---
"RD ASSESSMENT PMHx: no significant PMH PT INTERACTION: Note pt is currently in COVID isolation, per chart review. Note all diet information for nutrition assessment is per Regina RN or per chart review. Regina states current appetite appears okay, but pt has lost sense of taste. Note avg PO intake 56% x1d, per chart review. Regina states no issues with nausea, vomiting, constipation, or diarrhea that she is aware of. Note last BM was 08/04, and pt not currently on bowel regimen per chart review. Note unable to determine recent wt hx, per chart review. ABNORMAL NUTRITION-RELATED LAB VALUES LOW: HIGH: BUN 24; glu 176 Est. kcal needs: 7533-4880 kcal | 15-20 kcal/k g Est. Pro needs: 75-94 g Pro | 0.8-1.0 g Pro/kg PES STATEMENT: Inadequate oral intake (NI-2.1) related to loss of appetite and taste changes, as evidenced by chart review, communication with RN, and avg PO intake 56% x1d. INTERVENTION: Continue with current diet order of Regular diet. Add Ensure Enlive (vary) to meals TID, for increased kcal intake. Provides 350 kcal and 20 g Pro per serving. Would encourage pt to eat when able. Will continue to follow and reassess as pt needs, intake, and status change. Dasha Frances, MS RD LD"
[2020-08-05] MEDS: REMDESIVIR INJ 100 MG in NS (IVPB) 230 ML IV SCH (18:08)
[2020-08-05] MEDS: guaiFENesin/DM (ROBITUSSIN DM) 10 ML UDC PO PRN (21:03)
[2020-08-06] MEDS: RT-ALBUTEROL INHALER HFA (VENTOLIN HFA) 18 GM IH SCH ×6 (02:27→21:03)
[2020-08-06 02:29] VITALS: BP 109/72
[2020-08-06 04:21] LABS: ABG BASE EXCESS 1.6 MMOL/L (-2.5-2.5); ABG OXYGEN SATURATION 92 % (94-100); ABG PCO2 38 MMHG (35-45); ABG PH 7.44 (7.37-7.43); ABG PO2 62 MMHG (79-93)
[2020-08-06 04:22] LABS: ALLENS TEST YES-POS; INSPIRED O2 50%; PATIENT TEMP 35.2; VENTILATOR NO
--- NOTE | 2020-08-06 04:36 | Pulmonary Progress Note ---
Subjective Time Seen by a Provider: 04:31 Sepsis Event Evaluation Height, Weight, BMI Height: 5'9.00" Weight: 198lbs. oz. 89.136040gp; 29.00 BMI Method:Stated Focused Exam Lactate Level 08/05/20 06:12: Lactic Acid Level 2.26*H 08/05/20 08:15: Lactic Acid Level 2.01*H 08/05/20 10:45: Lactic Acid Level 1.55 Exam Exam Vital Signs Date Time Temp Pulse Resp B/P (MAP) Pulse Ox O2 Delivery O2 Flow Rate FiO2 08/06/20 02:29 73 33 98 45.00 08/06/20 01:00 70 08/06/20 00:00 75 32 137/82 96 NIV Bilevel 50.00 08/05/20 23:33 35.7 08/05/20 23:33 93 NIV Bilevel 50.00 08/05/20 23:00 87 30 111/88 96 Vapotherm 40.00 80.00 08/05/20 22:46 94 Vapotherm 40.00 80 08/05/20 22:00 79 28 130/71 96 Vapotherm 40.00 80.00 08/05/20 21:00 98 Vapotherm 40.00 100 08/05/20 21:00 99 Vapotherm 40.00 100.00 08/05/20 21:00 97 21 125/80 99 Vapotherm 40.00 100.00 08/05/20 20:46 35.5 76 28 121/80 89 Vapotherm 40.00 100.00 08/05/20 20:00 77 23 121/80 86 NIV Bilevel 50.00 08/05/20 19:00 77 34 131/81 90 NIV Bilevel 50.00 08/05/20 19:00 71 08/05/20 18:24 94 40.00 50 08/05/20 18:00 67 29 125/81 93 NIV Bilevel 50.00 08/05/20 17:00 77 36 127/80 93 NIV Bilevel 50.00 08/05/20 16:00 73 28 117/81 92 NIV Bilevel 50.00 08/05/20 15:00 100 31 118/82 92 NIV Bilevel 50.00 08/05/20 14:57 NIV Bilevel 50.00 08/05/20 14:47 73 33 98 50.00 11/12/20 14:00 67 25 109/72 92 Vapotherm 40.00 100.00 08/05/20 13:00 87 118/77 Vapotherm 40.00 100.00 08/05/20 12:23 84 08/05/20 12:00 76 113/83 Vapotherm 40.00 100.00 08/05/20 11:25 90 40.00 100 08/05/20 11:00 100 135/90 Vapotherm 40.00 100.00 08/05/20 10:00 74 111/74 Vapotherm 40.00 100.00 08/05/20 09:00 80 120/78 92 Vapotherm 40.00 100.00 08/05/20 08:27 90 Vapotherm 40.00 100 08/05/20 08:00 76 106/74 93 Vapotherm 40.00 100.00 08/05/20 07:46 90 40.00 100 08/05/20 07:00 71 134/96 91 Vapotherm 40.00 100.00 08/05/20 07:00 65 08/05/20 06:00 97 122/79 97 Vapotherm 40.00 100.00 08/05/20 05:00 74 111/75 97 Vapotherm 40.00 100.00 08/05/20 04:46 35.1 I & O 08/06/20 07:00 Intake Total 1362 ml Output Total 1000 ml Balance 362 ml Height & Weight Height: 5'9.00" Weight: 198lbs. oz. 89.736273wg; 29.00 BMI Method:Stated General Appearance: WD/WN, Moderate Distress HEENT: PERRL/EOMI, Pharynx Normal Neck: Non Tender, Supple Respiratory: Crackles (Bilateral versus), Respiratory Distress Cardiovascular: No Murmur, Tachycardia Capillary Refill: Less Than 3 Seconds Extremity: Normal Range of Motion, Non Tender Neurologic/Psychiatric: Alert, Oriented x3 Results Lab Laboratory Tests 08/05/20 03:35 08/05/20 03:55 Assessment/Plan Assessment/Plan Acute respiratory failure secondary to COVID PNA -Remdesivir -BiPAP PRN -Repeat PCT -Currently on Vapotherm 100% -Continue to Prone -Decadron continue at 20mg daily for now -Repeat DDIMer, ferritin -Increase Lovenox to 40 Q 12 -CVP -Continue Zosyn -BiPAP PRN Metabolic acidosis -Repeat [place] -Check UA LEONARDO FAIRBANKS DO Aug 06, 2020 04:36
[2020-08-06] MEDS ORDERED: FUROSEMIDE 40 MG/4 ML INJ (LASIX) IVP ONE (04:45)
[2020-08-06 04:51] LABS: BASOPHILS % (AUTO) 0 % (0-10); EOSINOPHILS % (AUTO) 0 % (0-10); HEMATOCRIT 42 % (40-54); HEMOGLOBIN 14.1 g/dL (13.3-17.7); LYMPHOCYTES # (AUTO) 0.7 10^3/uL (1.0-4.0); LYMPHOCYTES % (AUTO) 3 % (12-44); MEAN CORPUSCULAR HEMOGLOBIN 31 pg (25-34); MEAN CORPUSCULAR HGB CONC 33 g/dL (32-36); MEAN CORPUSCULAR VOLUME 92 fL (80-99); MEAN PLATELET VOLUME 10.1 fL (9.0-12.2); MONOCYTES # (AUTO) 0.7 10^3/uL (0.0-1.0); MONOCYTES % (AUTO) 3 % (0-12); NEUTROPHILS # (AUTO) 20.5 10^3/uL (1.8-7.8); NEUTROPHILS % (AUTO) 93 % (42-75); PLATELET COUNT 311 10^3/uL (130-400); WHITE BLOOD COUNT 22.1 10^3/uL (4.3-11.0)
[2020-08-06 05:14] LABS: BUN/CREATININE RATIO 28; CALCIUM 9.3 MG/DL (8.5-10.1); CARBON DIOXIDE 23 MMOL/L (21-32); CHLORIDE 104 MMOL/L (98-107); CREATININE SERUM 1.04 MG/DL (0.60-1.30); GFR ESTIMATED > 60; GLUCOSE 132 MG/DL (70-105); MAGNESIUM 2.3 MG/DL (1.6-2.4); PHOSPHORUS 4.2 MG/DL (2.3-4.7); POTASSIUM 4.6 MMOL/L (3.6-5.0); SODIUM 142 MMOL/L (135-145)
[2020-08-06 05:16] LABS: BAND NEUTROPHILS 2 %; LYMPHOCYTES % (MANUAL) 7 %; MONOCYTES % (MANUAL) 2 %; NEUTROPHILS % (MANUAL) 89 %; RBC MORPH NORMAL
[2020-08-06] MEDS: KCL 20 MEQ TAB (K-DUR) PO SCH (05:21)
[2020-08-06] MEDS: MAGNESIUM 1 GM/100 ML IVPB 100 ML IV SCH (05:21)
[2020-08-06] MEDS: POTASSIUM CL 10MEQ/50ML IVPB 50 ML IV SCH (05:21)
[2020-08-06] MEDS: inSUlin ASPART (NovoLOG) 1 UNIT/0.01 ML (CHARGE PER UNIT) SQ SCH ×4 (05:22→21:04)
[2020-08-06] MEDS: guaiFENesin/DM (ROBITUSSIN DM) 10 ML UDC PO PRN ×2 (06:07→21:07)
[2020-08-06] MEDS: PANTOPRAZOLE 40 MG (PROTONIX) VIAL IV SCH (08:40)
[2020-08-06] MEDS: ENOXAPARIN 40 MG/0.4 ML (LOVENOX) SYR SC SCH ×2 (08:40→20:51)
[2020-08-06] MEDS: BENZONATATE 100 MG (TESSALON) CAPSULE PO SCH ×3 (08:40→20:51)
[2020-08-06] MEDS: dexAMETHasone INJECTION 20 MG in NS (IVPB) 50 ML IV SCH (08:41)
[2020-08-06] MEDS: PIPERACILLIN/TAZOBACTAM (BULK) 4.5 GM in NS (IVPB) 100 ML IV SCH ×2 (08:41→16:30)
[2020-08-06] MEDS ORDERED: D5 1/2 NS 1000 ML IV SOLUTION 1,000 ML IV ONE (11:58)
[2020-08-06] MEDS ORDERED: DEXTROSE 50% 50 ML (IMS) SYR ONE (11:58)
[2020-08-06] MEDS ORDERED: DEXTROSE 50% 50 ML (IMS) SYR IV NR (12:00)
[2020-08-06] MEDS: D5 1/2 NS 1000 ML IV SOLUTION 1,000 ML IV SCH (12:31)
[2020-08-06] MEDS: REMDESIVIR INJ 100 MG in NS (IVPB) 230 ML IV SCH (18:18)
[2020-08-06] MEDS: LORazepam INJ 2 MG/ML (ATIVAN) VIAL IV PRN (20:59)
[2020-08-06 22:56] VITALS: BP 119/92
[2020-08-07] MEDS: LORazepam INJ 2 MG/ML (ATIVAN) VIAL IV PRN ×2 (00:33→03:50)
[2020-08-07] MEDS: PIPERACILLIN/TAZOBACTAM (BULK) 4.5 GM in NS (IVPB) 100 ML IV SCH ×3 (00:34→18:40)
[2020-08-07 02:31] LABS: ABG BASE EXCESS 4.5 MMOL/L (-2.5-2.5); ABG OXYGEN SATURATION 90 % (94-100); ABG PCO2 41 MMHG (35-45); ABG PH 7.45 (7.37-7.43); ABG PO2 67 MMHG (79-93); ABG TCO2 29.6 MMOL/L (21.0-31.0)
[2020-08-07 02:35] LABS: ALLENS TEST YES-POS; INSPIRED O2 70%; PATIENT TEMP 36.9; VENTILATOR NO
[2020-08-07 03:02] VITALS: BP 122/84
[2020-08-07] MEDS: RT-ALBUTEROL INHALER HFA (VENTOLIN HFA) 18 GM IH SCH ×6 (03:02→23:03)
[2020-08-07 04:12] LABS: BASOPHILS % (AUTO) 0 % (0-10); EOSINOPHILS % (AUTO) 0 % (0-10); HEMATOCRIT 40 % (40-54); HEMOGLOBIN 13.4 g/dL (13.3-17.7); LYMPHOCYTES # (AUTO) 0.7 10^3/uL (1.0-4.0); LYMPHOCYTES % (AUTO) 4 % (12-44); MEAN CORPUSCULAR HEMOGLOBIN 31 pg (25-34); MEAN CORPUSCULAR HGB CONC 34 g/dL (32-36); MEAN CORPUSCULAR VOLUME 91 fL (80-99); MONOCYTES # (AUTO) 0.6 10^3/uL (0.0-1.0); MONOCYTES % (AUTO) 3 % (0-12); NEUTROPHILS # (AUTO) 18.1 10^3/uL (1.8-7.8); NEUTROPHILS % (AUTO) 92 % (42-75); PLATELET COUNT 305 10^3/uL (130-400); WHITE BLOOD COUNT 19.6 10^3/uL (4.3-11.0)
[2020-08-07 04:25] LABS: CHLORIDE 103 MMOL/L (98-107); POTASSIUM 4.8 MMOL/L (3.6-5.0); SODIUM 140 MMOL/L (135-145)
[2020-08-07 04:26] LABS: CALCIUM 8.9 MG/DL (8.5-10.1); GLUCOSE 141 MG/DL (70-105)
[2020-08-07 04:28] LABS: CARBON DIOXIDE 25 MMOL/L (21-32)
[2020-08-07 04:30] LABS: CREATININE SERUM 1.03 MG/DL (0.60-1.30); GFR ESTIMATED > 60; PHOSPHORUS 4.1 MG/DL (2.3-4.7)
[2020-08-07 04:31] LABS: BUN/CREATININE RATIO 33
[2020-08-07 04:33] LABS: MAGNESIUM 2.5 MG/DL (1.6-2.4)
[2020-08-07] MEDS ORDERED: FUROSEMIDE 40 MG/4 ML INJ (LASIX) IVP ONE (05:00)
--- NOTE | 2020-08-07 05:06 | Pulmonary Progress Note ---
Subjective Time Seen by a Provider: 05:01 Sepsis Event Evaluation Height, Weight, BMI Height: 5'9.00" Weight: 198lbs. oz. 89.632197yf; 29.00 BMI Method:Stated Focused Exam Lactate Level 08/05/20 06:12: Lactic Acid Level 2.26*H 08/05/20 08:15: Lactic Acid Level 2.01*H 08/05/20 10:45: Lactic Acid Level 1.55 Exam Exam Vital Signs Date Time Temp Pulse Resp B/P (MAP) Pulse Ox O2 Delivery O2 Flow Rate FiO2 08/07/20 03:52 36.9 81 41 94 NIV Bilevel 75.00 08/07/20 03:02 72 42 88 75.00 08/07/20 03:00 90 36 122/84 92 NIV Bilevel 70.00 08/07/20 02:00 63 36 92/48 93 NIV Bilevel 70.00 08/07/20 01:00 59 31 98/50 89 NIV Bilevel 70.00 08/07/20 01:00 60 08/07/20 00:36 35.7 68 20 93 NIV Bilevel 70.00 08/07/20 00:00 64 26 122/93 89 NIV Bilevel 70.00 08/06/20 23:00 62 34 129/92 92 NIV Bilevel 70.00 08/06/20 22:56 59 35 96 70.00 08/06/20 22:00 71 20 119/82 86 NIV Bilevel 60.00 08/06/20 21:30 NIV Bilevel 60.00 08/06/20 21:00 90 Vapotherm 35.00 100 08/06/20 21:00 74 21 145/86 99 Vapotherm 35.00 100.00 08/06/20 20:00 66 22 126/87 91 Vapotherm 35.00 100.00 08/06/20 20:00 37.0 08/06/20 19:00 72 08/06/20 19:00 78 20 133/77 96 Vapotherm 35.00 100.00 08/06/20 18:00 67 32 128/78 89 Vapotherm 30.00 100.00 08/06/20 17:00 84 30 116/68 96 Vapotherm 30.00 100.00 08/06/20 16:00 76 47 145/87 93 Vapotherm 30.00 100.00 08/06/20 15:00 77 38 117/68 88 Vapotherm 30.00 100.00 08/06/20 14:34 92 Vapotherm 30.00 100 08/06/20 14:00 75 38 119/82 95 Vapotherm 30.00 100.00 08/06/20 13:11 88 08/06/20 13:00 89 34 129/81 89 Vapotherm 30.00 100.00 08/06/20 12:00 87 20 127/85 88 Vapotherm 30.00 100.00 08/06/20 11:47 36.9 08/06/20 11:27 92 Vapotherm 30.00 90 08/06/20 11:00 89 24 119/74 87 Vapotherm 30.00 100.00 08/06/20 10:00 68 38 107/80 95 Vapotherm 30.00 100.00 08/06/20 09:00 73 39 108/62 92 Vapotherm 30.00 100.00 08/06/20 08:52 93 Vapotherm 30.00 90 08/06/20 08:00 73 46 113/68 95 Vapotherm 30.00 100.00 08/06/20 07:30 Vapotherm 30.00 100.00 08/06/20 07:19 93 Vapotherm 30.00 100 08/06/20 07:00 63 26 114/73 99 Vapotherm 40.00 100.00 08/06/20 06:32 64 08/06/20 06:17 Vapotherm 40.00 100.00 08/06/20 06:00 101 28 114/67 99 NIV Bilevel 55.00 08/06/20 05:30 NIV Bilevel 55.00 I & O 08/07/20 07:00 Intake Total 1395 ml Output Total 1350 ml Balance 45 ml Height & Weight Height: 5'9.00" Weight: 198lbs. oz. 89.227453au; 29.00 BMI Method:Stated General Appearance: WD/WN, Moderate Distress HEENT: PERRL/EOMI, Pharynx Normal Neck: Non Tender, Supple Respiratory: Crackles (Bilateral versus), Respiratory Distress Cardiovascular: No Murmur, Tachycardia Capillary Refill: Less Than 3 Seconds Extremity: Normal Range of Motion, Non Tender Neurologic/Psychiatric: Alert, Oriented x3 Results Lab Laboratory Tests 08/06/20 04:15 08/07/20 02:35 Assessment/Plan Assessment/Plan Acute respiratory failure secondary to COVID PNA -Remdesivir -BiPAP PRN currently at 75% -Pt continues to require more oxygen and respiratory support. -Will have low threshold for intubation -Repeat Lasix 20mg IV x 1 -Continue to Prone -Decadron continue at 20mg daily for now -Repeat DDIMer, ferritin -Increase Lovenox to 40 Q 12 -CVP -Continue Zosyn -BiPAP PRN Anxious -Change Ativan to Precedex gabbie Metabolic acidosis -Repeat LA -Check UA LEONARDO FAIRBANKS DO Aug 07, 2020 05:06
[2020-08-07] MEDS: KCL 20 MEQ TAB (K-DUR) PO SCH (06:22)
[2020-08-07] MEDS: POTASSIUM CL 10MEQ/50ML IVPB 50 ML IV SCH (06:22)
[2020-08-07] MEDS: MAGNESIUM 1 GM/100 ML IVPB 100 ML IV SCH (06:22)
[2020-08-07] MEDS: inSUlin ASPART (NovoLOG) 1 UNIT/0.01 ML (CHARGE PER UNIT) SQ SCH ×4 (06:33→20:42)
[2020-08-07] MEDS: DexMEDEtomidine PRE MIX 100 ML IV SCH (07:08)
[2020-08-07 07:10] VITALS: BP 136/93
--- NOTE | 2020-08-07 07:21 | Diagnostic Imaging Report ---
INDICATION: Respiratory failure. COMPARISON: 08/03/2020 FINDINGS: Single frontal radiographic view of the chest was obtained and again demonstrates diffuse interstitial infiltrates. There has been, however, interval progression with areas of more focal confluent opacification in the bilateral mid and lower lung fritz. No large effusion or pneumothorax is seen. Cardiac silhouette is stable. Osseous structures show no acute abnormalities. IMPRESSION: 1. Interval progression of more confluent infiltrate superimposed on background interstitial pneumonia. Dictated by: Dictated on workstation # [id number]
[2020-08-07] MEDS: dexAMETHasone INJECTION 20 MG in NS (IVPB) 50 ML IV SCH (09:01)
[2020-08-07] MEDS: D5 1/2 NS 1000 ML IV SOLUTION 1,000 ML IV SCH ×2 (09:02→14:08)
[2020-08-07] MEDS: PANTOPRAZOLE 40 MG (PROTONIX) VIAL IV SCH (09:02)
[2020-08-07] MEDS: ENOXAPARIN 40 MG/0.4 ML (LOVENOX) SYR SC SCH ×2 (09:02→20:42)
[2020-08-07] MEDS: BENZONATATE 100 MG (TESSALON) CAPSULE PO SCH ×3 (09:02→20:42)
[2020-08-07] MEDS: ACETAMINOPHEN 500 MG TAB (TYLENOL) PO PRN (09:12)
[2020-08-07] MEDS: REMDESIVIR INJ 100 MG in NS (IVPB) 230 ML IV SCH (18:40)
[2020-08-08] MEDS: PIPERACILLIN/TAZOBACTAM (BULK) 4.5 GM in NS (IVPB) 100 ML IV SCH ×2 (00:03→08:10)
[2020-08-08] MEDS: DexMEDEtomidine PRE MIX 100 ML IV SCH ×3 (00:08→23:48)
[2020-08-08] MEDS: RT-ALBUTEROL INHALER HFA (VENTOLIN HFA) 18 GM IH SCH ×6 (01:04→22:05)
[2020-08-08] MEDS ORDERED: FUROSEMIDE 40 MG/4 ML INJ (LASIX) IVP ONE (04:30)
--- NOTE | 2020-08-08 04:30 | Pulmonary Progress Note ---
Subjective Time Seen by a Provider: 04:27 Subjective/Events-last exam Pt is now requiring BiPAP. Sepsis Event Evaluation Height, Weight, BMI Height: 5'9.00" Weight: 198lbs. oz. 89.371102pc; 29.00 BMI Method:Stated Focused Exam Lactate Level 08/05/20 06:12: Lactic Acid Level 2.26*H 08/05/20 08:15: Lactic Acid Level 2.01*H 08/05/20 10:45: Lactic Acid Level 1.55 Exam Exam Vital Signs Date Time Temp Pulse Resp B/P (MAP) Pulse Ox O2 Delivery O2 Flow Rate FiO2 08/08/20 03:00 52 35 105/72 90 NIV Bilevel 100.00 08/08/20 02:00 54 35 103/70 90 NIV Bilevel 100.00 08/08/20 01:04 51 36 93 100.00 08/08/20 01:00 52 32 103/77 93 NIV Bilevel 100.00 08/08/20 01:00 55 08/08/20 00:08 52 111/77 98 NIV/Bilevel 100.00 08/08/20 00:00 36.3 08/08/20 00:00 53 37 111/77 93 NIV Bilevel 100.00 08/07/20 23:03 50 39 85 100.00 08/07/20 23:00 51 32 117/76 90 NIV Bilevel 100.00 08/07/20 22:00 54 31 113/78 93 NIV Bilevel 100.00 08/07/20 21:00 90 NIV Bilevel 100 08/07/20 21:00 61 20 119/68 98 NIV Bilevel 100.00 08/07/20 20:00 56 33 109/74 94 NIV Bilevel 100.00 08/07/20 20:00 35.5 08/07/20 19:09 55 35 99 100.00 08/07/20 19:00 64 18 112/73 98 NIV Bilevel 100.00 08/07/20 19:00 70 08/07/20 18:00 52 30 93 NIV Bilevel 100.00 08/07/20 17:00 44 26 100 NIV Bilevel 100.00 08/07/20 16:00 64 28 96/73 91 NIV Bilevel 100.00 08/07/20 16:00 35.5 08/07/20 15:21 57 38 99 100.00 08/07/20 15:00 57 33 105/59 98 NIV Bilevel 100.00 08/07/20 14:00 55 28 103/67 95 NIV Bilevel 100.00 08/07/20 13:00 72 08/07/20 13:00 55 28 94/63 95 NIV Bilevel 100.00 08/07/20 12:43 NIV Bilevel 100.00 08/07/20 12:00 58 34 110/75 98 NIV Bilevel 75.00 08/07/20 11:42 37.3 08/07/20 11:00 66 109/75 90 NIV Bilevel 75.00 08/07/20 11:00 67 46 91 85.00 08/07/20 10:00 64 106/77 91 NIV Bilevel 75.00 08/07/20 09:12 37.8 08/07/20 09:00 90 NIV Bilevel 100 08/07/20 09:00 89 105/69 96 NIV Bilevel 75.00 08/07/20 08:10 37.2 08/07/20 08:00 79 23 102/69 97 NIV Bilevel 75.00 08/07/20 07:10 71 50 97 85.00 08/07/20 07:08 64 08/07/20 07:00 55 08/07/20 07:00 89 31 136/93 98 NIV Bilevel 75.00 08/07/20 06:00 65 35 124/84 94 NIV Bilevel 75.00 08/07/20 05:00 85 36 127/89 92 NIV Bilevel 75.00 I & O 08/08/20 07:00 Intake Total 750 ml Output Total 1875 ml Balance -1125 ml Height & Weight Height: 5'9.00" Weight: 198lbs. oz. 89.691933tw; 29.00 BMI Method:Stated General Appearance: WD/WN, Moderate Distress HEENT: PERRL/EOMI, Pharynx Normal Neck: Non Tender, Supple Respiratory: Crackles (Bilateral versus), Decreased Breath Sounds, Respiratory Distress Cardiovascular: No Murmur, Tachycardia Capillary Refill: Less Than 3 Seconds Extremity: Normal Range of Motion, Non Tender Neurologic/Psychiatric: Alert, Oriented x3 Skin: Normal Color, Warm/Dry Lymphatic: No Adenopathy Results Lab Laboratory Tests 08/07/20 02:35 Assessment/Plan Assessment/Plan Acute respiratory failure secondary to COVID PNA -Remdesivir -BiPAP PRN currently at 75% -Pt continues to require more oxygen and respiratory support. -Will have low threshold for intubation -Repeat Lasix 20mg IV x 1 -Lasix 40mg IV x 1 -Repeat PCT -Continue to Prone -Decadron continue at 20mg daily for now -Repeat DDIMer, ferritin -Increase Lovenox to 40 Q 12 -CVP -Continue Zosyn -BiPAP PRN Anxious -Change Ativan to Precedex gabbie Metabolic acidosis -Repeat LA -Check UA 0609: Update discussed with patient's regarding patient's current condition. I answered all questions to the best of my ability. Critical Care: Critically Ill Patient Time spent with patient (mins): 60 LEONARDO FAIRBANKS DO Aug 08, 2020 04:30
[2020-08-08 04:39] LABS: BASOPHILS % (AUTO) 0 % (0-10); EOSINOPHILS % (AUTO) 0 % (0-10); HEMATOCRIT 41 % (40-54); HEMOGLOBIN 13.8 g/dL (13.3-17.7); LYMPHOCYTES # (AUTO) 0.5 10^3/uL (1.0-4.0); LYMPHOCYTES % (AUTO) 2 % (12-44); MEAN CORPUSCULAR HEMOGLOBIN 31 pg (25-34); MEAN CORPUSCULAR HGB CONC 34 g/dL (32-36); MEAN CORPUSCULAR VOLUME 91 fL (80-99); MEAN PLATELET VOLUME 10.2 fL (9.0-12.2); MONOCYTES # (AUTO) 0.4 10^3/uL (0.0-1.0); MONOCYTES % (AUTO) 2 % (0-12); NEUTROPHILS % (AUTO) 95 % (42-75); PLATELET COUNT 282 10^3/uL (130-400)
[2020-08-08 04:40] LABS: ABG BASE EXCESS 3.2 MMOL/L (-2.5-2.5); ABG OXYGEN SATURATION 95 % (94-100); ABG PCO2 39 MMHG (35-45); ABG PH 7.45 (7.37-7.43); ABG PO2 77 MMHG (79-93); ABG TCO2 28.3 MMOL/L (21.0-31.0)
[2020-08-08 04:42] LABS: ALLENS TEST YES-POS; INSPIRED O2 100%; PATIENT TEMP 36.4; VENTILATOR NO
[2020-08-08 04:52] LABS: CHLORIDE 101 MMOL/L (98-107); POTASSIUM 4.8 MMOL/L (3.6-5.0); SODIUM 138 MMOL/L (135-145)
[2020-08-08 04:53] LABS: CALCIUM 8.8 MG/DL (8.5-10.1); GLUCOSE 156 MG/DL (70-105)
[2020-08-08 04:55] LABS: CARBON DIOXIDE 22 MMOL/L (21-32)
[2020-08-08] MEDS: POTASSIUM CL 10MEQ/50ML IVPB 50 ML IV SCH (04:56)
[2020-08-08 04:57] LABS: CREATININE SERUM 1.02 MG/DL (0.60-1.30); GFR ESTIMATED > 60
[2020-08-08] MEDS: inSUlin ASPART (NovoLOG) 1 UNIT/0.01 ML (CHARGE PER UNIT) SQ SCH ×4 (04:57→20:27)
[2020-08-08] MEDS: KCL 20 MEQ TAB (K-DUR) PO SCH (04:57)
[2020-08-08 04:58] LABS: BUN/CREATININE RATIO 34
[2020-08-08 05:00] LABS: MAGNESIUM 2.5 MG/DL (1.6-2.4)
[2020-08-08] MEDS: MAGNESIUM 1 GM/100 ML IVPB 100 ML IV SCH (05:23)
[2020-08-08 07:08] VITALS: BP 111/79
[2020-08-08] MEDS: PANTOPRAZOLE 40 MG (PROTONIX) VIAL IV SCH (08:05)
[2020-08-08] MEDS: BENZONATATE 100 MG (TESSALON) CAPSULE PO SCH ×3 (08:05→20:27)
[2020-08-08] MEDS: ENOXAPARIN 40 MG/0.4 ML (LOVENOX) SYR SC SCH ×2 (08:05→20:27)
[2020-08-08] MEDS: D5 1/2 NS 1000 ML IV SOLUTION 1,000 ML IV SCH (08:07)
[2020-08-08] MEDS: dexAMETHasone INJECTION 20 MG in NS (IVPB) 50 ML IV SCH (08:09)
[2020-08-08 10:36] VITALS: BP 119/80
[2020-08-08 14:41] VITALS: BP 103/70
--- NOTE | 2020-08-08 17:00 | NUR ---
Shift Summary: Pt has not had much appetite during shift. Pt has remained on bipap throughout shift Fio2 ranging from 60-100% during shift. Other VS have remained stable. , Carmen, updated at various times during shift and pt has been able to facetime with with staff ipad and with personal phone. Pt remains very fatigued and often depressed during shift. Encouragement provided by staff and family during this time. Pt proned during evening portion of shift and tolerated well. O2 saturation increased to 99% and bipap Fio2 was able to be decreased to 60% during prone period. Barrios was also placed during shift due to pt's decreased in O2 saturation with any movement or exertion. Will continue to monitor for remainder of shift.
[2020-08-08 19:39] VITALS: BP 135/95
[2020-08-08 22:05] VITALS: BP 104/72
[2020-08-09 02:52] LABS: BASOPHILS % (AUTO) 0 % (0-10); EOSINOPHILS % (AUTO) 0 % (0-10); HEMATOCRIT 42 % (40-54); HEMOGLOBIN 14.1 g/dL (13.3-17.7); LYMPHOCYTES # (AUTO) 0.4 10^3/uL (1.0-4.0); LYMPHOCYTES % (AUTO) 2 % (12-44); MEAN CORPUSCULAR HEMOGLOBIN 31 pg (25-34); MEAN CORPUSCULAR HGB CONC 34 g/dL (32-36); MEAN CORPUSCULAR VOLUME 91 fL (80-99); MEAN PLATELET VOLUME 9.9 fL (9.0-12.2); MONOCYTES # (AUTO) 0.4 10^3/uL (0.0-1.0); MONOCYTES % (AUTO) 2 % (0-12); NEUTROPHILS % (AUTO) 96 % (42-75); PLATELET COUNT 289 10^3/uL (130-400)
[2020-08-09 03:02] LABS: CHLORIDE 100 MMOL/L (98-107); POTASSIUM 4.6 MMOL/L (3.6-5.0); SODIUM 134 MMOL/L (135-145)
[2020-08-09 03:03] LABS: CALCIUM 8.6 MG/DL (8.5-10.1)
[2020-08-09] MEDS: RT-ALBUTEROL INHALER HFA (VENTOLIN HFA) 18 GM IH SCH ×6 (03:03→21:28)
[2020-08-09 03:04] LABS: GLUCOSE 157 MG/DL (70-105)
[2020-08-09 03:05] LABS: CARBON DIOXIDE 22 MMOL/L (21-32)
[2020-08-09 03:07] LABS: CREATININE SERUM 0.87 MG/DL (0.60-1.30); GFR ESTIMATED > 60; PHOSPHORUS 3.3 MG/DL (2.3-4.7)
[2020-08-09 03:08] LABS: BUN/CREATININE RATIO 45
[2020-08-09 03:10] LABS: MAGNESIUM 2.4 MG/DL (1.6-2.4)
[2020-08-09 04:38] LABS: ABG BASE EXCESS 3.7 MMOL/L (-2.5-2.5); ABG OXYGEN SATURATION 92 % (94-100); ABG PCO2 38 MMHG (35-45); ABG PH 7.47 (7.37-7.43); ABG PO2 66 MMHG (79-93); ABG TCO2 28.8 MMOL/L (21.0-31.0)
[2020-08-09 04:39] LABS: ALLENS TEST YES-POS; INSPIRED O2 65%; VENTILATOR NO
[2020-08-09 04:40] LABS: PATIENT TEMP 35.6
--- NOTE | 2020-08-09 05:21 | Pulmonary Progress Note ---
Sepsis Event Evaluation Height, Weight, BMI Height: 5'9.00" Weight: 198lbs. oz. 89.609691kf; 29.00 BMI Method:Stated Exam Exam Vital Signs Date Time Temp Pulse Resp B/P (MAP) Pulse Ox O2 Delivery O2 Flow Rate FiO2 08/09/20 04:00 75 117/80 93 NIV Bilevel 65.00 08/09/20 03:59 35.6 NIV Bilevel 65.00 08/09/20 03:04 49 22 96 70.00 08/09/20 03:00 76 109/70 93 NIV Bilevel 70.00 08/09/20 02:00 49 28 109/70 97 NIV Bilevel 70.00 08/09/20 01:00 50 08/09/20 01:00 50 28 111/69 93 NIV Bilevel 70.00 08/09/20 00:00 56 100/66 96 NIV Bilevel 70.00 08/08/20 23:49 36.2 08/08/20 23:48 47 08/08/20 23:00 50 19 104/72 91 NIV Bilevel 70.00 08/08/20 22:05 49 24 93 70.00 08/08/20 22:00 52 30 106/65 91 NIV Bilevel 70.00 08/08/20 21:00 95 NIV Bilevel 70 08/08/20 21:00 48 38 118/75 96 NIV Bilevel 70.00 08/08/20 20:45 95 NIV Bilevel 70.00 08/08/20 20:10 36.8 08/08/20 20:00 49 26 108/72 92 NIV Bilevel 75.00 08/08/20 20:00 97 NIV Bilevel 75.00 08/08/20 19:39 56 26 88 60.00 60 08/08/20 19:00 53 14 116/77 91 NIV Bilevel 60.00 08/08/20 19:00 53 08/08/20 18:00 55 30 115/77 93 NIV Bilevel 60.00 08/08/20 17:00 44 26 114/77 90 NIV Bilevel 60.00 08/08/20 16:07 36.2 08/08/20 16:00 54 24 104/74 90 NIV Bilevel 90.00 08/08/20 15:00 56 31 107/67 95 NIV Bilevel 90.00 08/08/20 14:41 56 37 91 90.00 08/08/20 14:00 56 30 103/70 91 NIV Bilevel 90.00 08/08/20 13:00 53 30 109/24 91 NIV Bilevel 90.00 08/08/20 13:00 59 08/08/20 12:15 35.5 08/08/20 11:00 53 24 109/24 90 NIV Bilevel 85.00 08/08/20 10:36 58 37 90 85.00 08/08/20 10:00 54 31 119/80 92 NIV Bilevel 85.00 08/08/20 09:00 66 32 91/64 92 NIV Bilevel 85.00 08/08/20 09:00 91 NIV Bilevel 85 08/08/20 08:05 73 08/08/20 08:00 82 37 107/73 94 NIV Bilevel 85.00 08/08/20 07:08 58 35 96 85.00 08/08/20 07:00 37.1 80 NIV Bilevel 85.00 08/08/20 07:00 62 35 111/79 95 NIV Bilevel 85.00 08/08/20 07:00 66 08/08/20 06:00 48 31 114/76 100 NIV Bilevel 100.00 I & O 08/09/20 07:00 Intake Total 1062 ml Output Total 1950 ml Balance -888 ml Height & Weight Height: 5'9.00" Weight: 198lbs. oz. 89.357903fn; 29.00 BMI Method:Stated General Appearance: WD/WN, Moderate Distress HEENT: PERRL/EOMI, Pharynx Normal Neck: Non Tender, Supple Respiratory: Crackles (Bilateral versus), Decreased Breath Sounds, Respiratory Distress Cardiovascular: No Murmur, Tachycardia Capillary Refill: Less Than 3 Seconds Extremity: Normal Range of Motion, Non Tender Neurologic/Psychiatric: Alert, Oriented x3 Skin: Normal Color, Warm/Dry Lymphatic: No Adenopathy Results Lab Laboratory Tests 08/08/20 04:13 08/09/20 02:40 Assessment/Plan Assessment/Plan Acute respiratory failure secondary to COVID PNA --Continue Zosyn -Zosyn auto stopped yesterday morning. Pt has worsening leukocytosis today. -Will restart Zosyn and repeat CXR -Remdesivir -BiPAP PRN currently at 65% -Continue to Prone -Decadron continue at 20mg daily for now -Repeat DDIMer, ferritin -Increase Lovenox to 40 Q 12 -CVP Anxious -Precedex gtt with BiPAP Metabolic acidosis -Repeat LA -Check UA LEONARDO FAIRBANKS DO Aug 09, 2020 05:21
[2020-08-09] MEDS: KCL 20 MEQ TAB (K-DUR) PO SCH (05:55)
[2020-08-09] MEDS: POTASSIUM CL 10MEQ/50ML IVPB 50 ML IV SCH (05:55)
[2020-08-09] MEDS: inSUlin ASPART (NovoLOG) 1 UNIT/0.01 ML (CHARGE PER UNIT) SQ SCH ×4 (05:55→20:30)
[2020-08-09] MEDS: MAGNESIUM 1 GM/100 ML IVPB 100 ML IV SCH (05:55)
[2020-08-09] MEDS ORDERED: NS (IVPB) 100 ML ONE (06:05)
[2020-08-09] MEDS ORDERED: PIPERACILLIN/TAZO 4.5 GM VIAL (ZOSYN) IV ONE (06:05)
[2020-08-09] MEDS: PIPERACILLIN/TAZOBACTAM (BULK) 4.5 GM in NS (IVPB) 100 ML IV SCH ×3 (06:18→20:29)
--- NOTE | 2020-08-09 08:27 | Diagnostic Imaging Report ---
EXAMINATION: Chest 1 view HISTORY: Covid positive, ventilated. COMPARISON: Chest radiograph 08/07/2020 FINDINGS: Heart size and pulmonary vasculature are normal. There is increasing interstitial opacifications of both lungs, predominantly within the mid and lower lungs. No pleural effusion or pneumothorax. The osseous structures are intact. IMPRESSION: 1. Increasing groundglass opacification of the bilateral mid and lower lungs compatible with atypical infection and history of COVID-19. Dictated by: Dictated on workstation # [id number]
[2020-08-09] MEDS: BENZONATATE 100 MG (TESSALON) CAPSULE PO SCH ×3 (08:30→20:30)
[2020-08-09] MEDS: PANTOPRAZOLE 40 MG (PROTONIX) VIAL IV SCH (08:30)
[2020-08-09] MEDS: ENOXAPARIN 40 MG/0.4 ML (LOVENOX) SYR SC SCH ×2 (08:30→20:30)
[2020-08-09] MEDS: dexAMETHasone INJECTION 20 MG in NS (IVPB) 50 ML IV SCH (08:30)
[2020-08-09 11:11] VITALS: BP 93/56
[2020-08-09] MEDS: DexMEDEtomidine PRE MIX 100 ML IV SCH (11:37)
[2020-08-09] MEDS: D5 1/2 NS 1000 ML IV SOLUTION 1,000 ML IV SCH (20:29)
[2020-08-10 01:54] VITALS: BP 93/56
[2020-08-10] MEDS: RT-ALBUTEROL INHALER HFA (VENTOLIN HFA) 18 GM IH SCH ×6 (01:54→21:52)
[2020-08-10] MEDS: DexMEDEtomidine PRE MIX 100 ML IV SCH (03:05)
[2020-08-10] MEDS: D5 1/2 NS 1000 ML IV SOLUTION 1,000 ML IV SCH (03:05)
[2020-08-10 03:25] LABS: BASOPHILS % (AUTO) 0 % (0-10); EOSINOPHILS % (AUTO) 0 % (0-10); HEMATOCRIT 43 % (40-54); HEMOGLOBIN 14.4 g/dL (13.3-17.7); LYMPHOCYTES # (AUTO) 0.4 10^3/uL (1.0-4.0); LYMPHOCYTES % (AUTO) 2 % (12-44); MEAN CORPUSCULAR HEMOGLOBIN 31 pg (25-34); MEAN CORPUSCULAR HGB CONC 34 g/dL (32-36); MEAN CORPUSCULAR VOLUME 91 fL (80-99); MEAN PLATELET VOLUME 10.1 fL (9.0-12.2); MONOCYTES # (AUTO) 0.2 10^3/uL (0.0-1.0); MONOCYTES % (AUTO) 1 % (0-12); NEUTROPHILS # (AUTO) 19.3 10^3/uL (1.8-7.8); NEUTROPHILS % (AUTO) 97 % (42-75); PLATELET COUNT 307 10^3/uL (130-400)
[2020-08-10 03:39] LABS: CHLORIDE 102 MMOL/L (98-107); SODIUM 136 MMOL/L (135-145)
[2020-08-10 03:40] LABS: CALCIUM 8.2 MG/DL (8.5-10.1)
[2020-08-10 03:41] LABS: GLUCOSE 140 MG/DL (70-105)
[2020-08-10 03:42] LABS: CARBON DIOXIDE 21 MMOL/L (21-32)
[2020-08-10 03:44] LABS: PHOSPHORUS 3.2 MG/DL (2.3-4.7)
[2020-08-10 03:45] LABS: CREATININE SERUM 0.86 MG/DL (0.60-1.30); GFR ESTIMATED > 60
[2020-08-10 03:46] LABS: BUN/CREATININE RATIO 38
[2020-08-10 03:47] LABS: MAGNESIUM 2.4 MG/DL (1.6-2.4)
--- NOTE | 2020-08-10 03:50 | Pulmonary Progress Note ---
Subjective Time Seen by a Provider: 03:44 Subjective/Events-last exam Currently on BiPAP at 60% Sepsis Event Evaluation Height, Weight, BMI Height: 5'9.00" Weight: 198lbs. oz. 89.796265kz; 29.00 BMI Method:Stated Focused Exam Lactate Level 08/10/20 03:08: Lactic Acid Level 2.00 Lactic Acid Level Laboratory Tests Test 08/10/20 03:08 Lactic Acid Level 2.00 MMOL/L (0.50-2.00) Exam Exam Vital Signs Date Time Temp Pulse Resp B/P (MAP) Pulse Ox O2 Delivery O2 Flow Rate FiO2 08/10/20 03:33 93 NIV Bilevel 60 08/10/20 03:05 59 08/10/20 01:54 67 36 93 60.00 08/10/20 00:00 36.2 NIV Bilevel 60.00 08/09/20 23:00 53 28 107/71 93 NIV Bilevel 50.00 08/09/20 22:00 60 18 105/72 94 NIV Bilevel 50.00 08/09/20 21:45 54 26 95 NIV Bilevel 50.00 08/09/20 21:29 94 Vapotherm 40.00 100 08/09/20 21:10 94 Vapotherm 40.00 100 08/09/20 21:00 59 26 111/75 92 Vapotherm 40.00 100.00 08/09/20 20:00 62 24 110/71 93 Vapotherm 40.00 100.00 08/09/20 19:00 66 08/09/20 19:00 66 21 106/67 91 Vapotherm 40.00 100.00 08/09/20 19:00 36.1 Vapotherm 40.00 100.00 08/09/20 18:37 91 Vapotherm 40.00 100 08/09/20 18:00 58 24 112/73 95 Vapotherm 40.00 100.00 08/09/20 17:00 65 24 109/76 95 Vapotherm 40.00 100.00 08/09/20 16:00 60 26 108/65 91 Vapotherm 40.00 100.00 08/09/20 15:41 36.4 08/09/20 15:00 61 31 99/68 92 Vapotherm 40.00 100.00 08/09/20 14:56 94 Vapotherm 40.00 100 08/09/20 14:00 64 33 106/61 87 Vapotherm 40.00 100.00 08/09/20 13:00 66 23 106/69 93 Vapotherm 40.00 100.00 08/09/20 12:43 63 08/09/20 12:00 72 17 97/57 89 NIV Bilevel 65.00 08/09/20 11:37 36.8 62 18 93/56 93 NIV/Bilevel 08/09/20 11:31 36.8 08/09/20 11:11 67 36 93 60.00 08/09/20 11:00 58 93/56 91 NIV Bilevel 65.00 08/09/20 10:00 60 28 93/57 90 NIV Bilevel 65.00 08/09/20 09:00 58 22 95/60 93 NIV Bilevel 65.00 08/09/20 09:00 92 NIV Bilevel 60 08/09/20 08:00 49 23 92/55 84 NIV Bilevel 65.00 08/09/20 07:42 35.8 08/09/20 07:00 50 20 92/58 90 NIV Bilevel 65.00 08/09/20 06:38 53 08/09/20 06:23 97 NIV Bilevel 08/09/20 06:00 45 22 115/80 95 NIV Bilevel 65.00 08/09/20 05:00 47 110/75 92 NIV Bilevel 65.00 08/09/20 04:00 75 117/80 93 NIV Bilevel 65.00 08/09/20 03:59 35.6 NIV Bilevel 65.00 I & O 08/10/20 07:00 Intake Total 2122 ml Output Total 1950 ml Balance 172 ml Height & Weight Height: 5'9.00" Weight: 198lbs. oz. 89.757501cv; 29.00 BMI Method:Stated General Appearance: WD/WN, Moderate Distress HEENT: PERRL/EOMI, Pharynx Normal Neck: Non Tender, Supple Respiratory: Crackles (Bilateral versus), Decreased Breath Sounds, Respiratory Distress Cardiovascular: No Murmur, Tachycardia Capillary Refill: Less Than 3 Seconds Extremity: Normal Range of Motion, Non Tender Neurologic/Psychiatric: Alert, Oriented x3 Skin: Normal Color, Warm/Dry Lymphatic: No Adenopathy Results Lab Laboratory Tests 08/08/20 04:13 08/09/20 02:40 08/10/20 03:08 Assessment/Plan Assessment/Plan Acute respiratory failure secondary to COVID PNA --Continue Zosyn -Zosyn auto stopped yesterday morning. Pt has worsening leukocytosis today. -Will restart Zosyn and repeat CXR -Remdesivir -BiPAP PRN currently at 65% -Continue to Prone -Decadron continue at 20mg daily for now -Increase Lovenox to 40 Q 12 -s/p CVP -DDimer is up to 3 will increase Lovenox to theraputic dosing. Anxious -Precedex gtt with BiPAP Update: -- Notified by radiologist secondary to suspicious of pneumomediastinum from CXR. Will order CT of chest. LEONARDO FAIRBANKS DO Aug 10, 2020 03:50
[2020-08-10] MEDS: POTASSIUM CL 10MEQ/50ML IVPB 50 ML IV SCH (04:23)
[2020-08-10] MEDS: MAGNESIUM 1 GM/100 ML IVPB 100 ML IV SCH (04:23)
[2020-08-10] MEDS: KCL 20 MEQ TAB (K-DUR) PO SCH (04:24)
[2020-08-10 04:25] LABS: ABG BASE EXCESS 1.6 MMOL/L (-2.5-2.5); ABG OXYGEN SATURATION 95 % (94-100); ABG PCO2 34 MMHG (35-45); ABG PH 7.48 (7.37-7.43); ABG PO2 77 MMHG (79-93); ABG TCO2 26.1 MMOL/L (21.0-31.0)
[2020-08-10 04:26] LABS: ALLENS TEST YES-POS; INSPIRED O2 60%; PATIENT TEMP 36.2; VENTILATOR NO
--- NOTE | 2020-08-10 04:34 | NUR ---
IV REMOVED FROM THE LEFT FOREARM FOR LEAKING. UNABLE TO FIND DOCUMENTATION OF SITE IN THE INTERVENTIONS.
[2020-08-10] MEDS: PIPERACILLIN/TAZOBACTAM (BULK) 4.5 GM in NS (IVPB) 100 ML IV SCH ×3 (05:45→23:12)
[2020-08-10] MEDS: inSUlin ASPART (NovoLOG) 1 UNIT/0.01 ML (CHARGE PER UNIT) SQ SCH ×4 (05:45→20:06)
--- NOTE | 2020-08-10 06:19 | Diagnostic Imaging Report ---
Portable erect AP chest at 412 hours. INDICATION: Shortness of breath. FINDINGS: The heart size is within normal limits and the heart does seem somewhat less prominent than noted on the prior exam of 08/09/2020. The alveolar/interstitial pulmonary infiltrates involving both lungs noted previously are again evident and also perhaps slightly less striking. However, in the interval since the prior exam, gas has developed in the soft tissues of the neck and mediastinum and adjacent to the shadow of the descending thoracic aorta. This appearance does suggest a pneumomediastinum. If further evaluation is desired, then CT of the chest would be recommended. The mediastinum itself is not widened. The osseous structures are intact. IMPRESSION: 1. There are mixed results. Both the heart and the alveolar/interstitial infiltrates involving the lungs do seem less prominent than noted on the prior exam. However, a pneumomediastinum has developed. CT of the chest would be recommended for further evaluation. 2. These results were conveyed to Dr. Shane Hager at the time of this dictation. Dictated by: Dictated on workstation # [id number]
[2020-08-10 07:49] VITALS: BP 117/76
[2020-08-10] MEDS: PANTOPRAZOLE 40 MG (PROTONIX) VIAL IV SCH (08:35)
[2020-08-10] MEDS: ENOXAPARIN 80 MG/0.8 ML (LOVENOX) SYR SC SCH ×2 (08:36→23:12)
[2020-08-10] MEDS: BENZONATATE 100 MG (TESSALON) CAPSULE PO SCH ×3 (08:43→20:06)
[2020-08-10] MEDS ORDERED: PROPOFOL DRIP (ICU) 100 ML IV ONE (10:12)
[2020-08-10] MEDS ORDERED: proPOfol 200 MG/20 ML (DIPRIVAN) VIAL IV ONE (10:13)
[2020-08-10] MEDS ORDERED: NS IV 1000 ML 1,000 ML ONE ×2 (10:13→10:18)
--- NOTE | 2020-08-10 11:36 | Diagnostic Imaging Report ---
EXAMINATION: Chest 1 view HISTORY: Respiratory distress. COMPARISON: Chest radiograph 08/10/2020. FINDINGS: Heart size and pulmonary vasculature are normal. There is extensive subcutaneous air seen within the neck and right chest wall. There is stable pneumomediastinum. Patchy airspace opacities within the mid and lower lungs, not significantly changed from prior radiograph on 08/10/2020. No obvious pneumothorax. Degenerative changes of the thoracic spine. Osseous structures are otherwise intact. IMPRESSION: 1. Stable pneumomediastinum and subcutaneous emphysema involving the neck and right chest wall. 2. Stable mid and lower lung patchy airspace opacities. Dictated by: Dictated on workstation # [id number]
[2020-08-10 11:45] VITALS: BP 128/83
--- NOTE | 2020-08-10 12:00 | Pulmonary Procedures ---
Pulmonary Procedures Date of Procedure Date of Service: Aug 10, 2020 Reason for Intubation: respiratory failure Time of Intubation: 11:59 Intubation Method: orotracheal Tube Size: 8 Medications: Fentanyl, Propofol, Rocuronium, Versed Positive End Tide CO2: Yes Breath Sounds after Intubation: bilateral-equal Intubation Complications: no complications Post Intubation Xray: Yes LEONARDO FAIRBANKS DO Aug 10, 2020 12:00
--- NOTE | 2020-08-10 12:23 | Diagnostic Imaging Report ---
INDICATION: Post intubation. TECHNIQUE/COMPARISON: A frontal chest was obtained at 11:52 AM and is compared to the same day at 10:59 AM. FINDINGS: The heart is normal in size. Pneumomediastinum is again noted. Extensive infiltrates throughout both lungs are unchanged compared to the prior study. There is no left pneumothorax. There does appear to be a tiny right apical pneumothorax. There is no significant pleural fluid. The ET tube tip overlies the upper trachea at the thoracic inlet. The NG tube tip is below the film. IMPRESSION: The ET tube tip overlies the upper trachea at the thoracic inlet. Extensive bilateral infiltrates are again noted. There is pneumomediastinum with air in the neck soft tissues. There is a tiny right apical pneumothorax. Dictated by: Dictated on workstation # [id number]
--- NOTE | 2020-08-10 12:56 | Diagnostic Imaging Report ---
EXAMINATION: CT Chest without contrast. TECHNIQUE: Multiple contiguous axial images were obtained through the chest without the use of intravenous contrast. All CT scans use one or more of the following dose optimizing techniques: automated exposure control, MA and/or KvP adjustment based on a patient size and exam type, or iterative reconstruction. HISTORY: Covid positive, hypoxia. COMPARISON: Chest radiograph 08/10/2020. FINDINGS: Thyroid: The visualized thyroid is normal. Mediastinum: The heart size is normal without significant pericardial effusion. There is extensive air within the mediastinum. An enteric catheter is present with the tip located within the stomach. The aorta is normal in caliber. No suspicious lymphadenopathy. Lungs and airways: There is diffuse patchy groundglass attenuation throughout the lungs with more patchy consolidation within the lung bases. Trace right apical pneumothorax. No pleural effusion. An endotracheal tube is partially visualized within the upper trachea. Upper abdomen: There is a 0.3 cm nonobstructing left renal calculus. Musculoskeletal: Degenerative changes of the spine without suspicious osseous lesion or compression fracture. Subcutaneous emphysema involving the bilateral chest wall and axilla extending into the lower neck. IMPRESSION: 1. Diffuse groundglass attenuation of the lungs with patchy consolidation in the lung bases, compatible with multifocal pneumonia. 2. Extensive subcutaneous emphysema and pneumomediastinum. 3. Trace right apical pneumothorax. Dictated by: Dictated on workstation # [id number]
--- NOTE | 2020-08-10 13:29 | Occ Therapy Progress Note ---
Therapy Progress Note OT order received, chart reviewed. Pt. currently on ventilator and sedation. Will continue to monitor and assess pt. when medically stable. 1329 NIGEL DEL RIO OT Aug 10, 2020 13:29
[2020-08-10] MEDS: PROPOFOL DRIP (ICU) 100 ML IV SCH ×3 (13:40→22:34)
[2020-08-10] MEDS: fentaNYL DRIP PRE-MIX 250 ML IV SCH ×3 (13:46→21:15)
[2020-08-10] MEDS ORDERED: fentaNYL INJECTION 100 MCG/2 ML AMP IV ONE (13:49)
[2020-08-10] MEDS ORDERED: MIDAZOLAM 5 MG/5 ML (VERSED) VIAL IJ ONE (13:49)
[2020-08-10] MEDS ORDERED: ROCURONIUM 10 MG/ML 5 ML SYRINGE IV ONE (13:49)
[2020-08-10 14:31] VITALS: BP 109/75
[2020-08-10] MEDS ORDERED: fentaNYL INJECTION 100 MCG/2 ML AMP IVP PRN (15:00)
--- NOTE | 2020-08-10 15:02 | Physical Therapy Progress Note ---
Therapy Progress Note Pt. currently on ventilator and sedation. Will continue to monitor and assess pt. when medically stable. JAMES PRINCE PT Aug 10, 2020 15:02
--- NOTE | 2020-08-10 15:17 | Diagnostic Imaging Report ---
INDICATION: Pneumonia. COMPARISON: Earlier this same day. FINDINGS: A single frontal radiographic view of the chest was obtained and demonstrates an indwelling endotracheal tube with the tip approximately 3.5 cm above the clavicles. A gastric tube is seen with the tip and side-port likely within the stomach. There is persistent moderate soft tissue emphysema over the upper chest and lower neck. A trace right apical pneumothorax persists. There are also persistent diffuse alveolar opacities throughout both lungs. Overall, aeration is stable compared to the prior exam. There is no large effusion or pneumothorax. The cardiac silhouette is stable. IMPRESSION: 1. Indwelling endotracheal tube with the tip 3.5 cm above the clavicular heads. 2. Otherwise, stable exam of the chest showing persistent diffuse infiltrates, moderate soft tissue emphysema, and a small right apical pneumothorax. Dictated by: Dictated on workstation # [id number]
[2020-08-10 16:22] LABS: ABG OXYGEN SATURATION 88 % (94-100); ABG PCO2 43 MMHG (35-45); ABG PH 7.38 (7.37-7.43); ABG PO2 63 MMHG (79-93); ALLENS TEST YES-POS; INSPIRED O2 100%; PATIENT TEMP 36.5; VENTILATOR YES
--- NOTE | 2020-08-10 16:36 | NUR ---
pt intubated by dr. Hager. pt received 2mg versed@1130 50mcg fentanyl @1133 followed by flush 10cc 50mg propofol and 50 of rock@1134 followed by flush 10cc 50mg propofol @1135 et tube 8.0 inserted. 24@lip @1136 og inserted@1145 1152 pt received another 50 of fentanyl iv push and xray taken. 1145 bilateral wrist restrains applied.
--- NOTE | 2020-08-10 17:01 | NUR ---
wasted 100mg propofol, 50ml precedex, 3mg of versed. PERICO Ortiz witnessed.
[2020-08-10 19:02] VITALS: BP 107/77
[2020-08-10] MEDS: NOREPINEPHRINE 4 MG/250 ML 250 ML IV SCH ×2 (20:06→23:12)
--- NOTE | 2020-08-10 20:59 | Diagnostic Imaging Report ---
INDICATION: COVID positive, intubation. TECHNIQUE: Single view chest 8:17 PM. CORRELATION STUDY: 08/10/2020 FINDINGS: The previously noted endotracheal tube is not visualized on this study. Gastric tube passes into the right upper quadrant. Right sided central line tip projects at the high right atrium. Subcutaneous gas over the neck and upper chest persisting. Presence of pneumomediastinum. Definitive pleural line to reflect pneumothorax is not demonstrated. Extensive opacities throughout both lung fritz compatible with likely dense consolidating infiltrate does persist and is generally stable. IMPRESSION: 1. The previously noted high positioned endotracheal tube is not visualized on this current study. May be positioned above the area imaged but again is likely abnormally high. 2. Continued presence of subcutaneous gas and pneumomediastinum. 3. Extensive bilateral 5 lobe infiltrate overall appearing generally stable. Report given to nurse (Brittany) at 8:57 PM 08/10/2020/cb Dictated by: Dictated on workstation # [id number]
[2020-08-10 21:52] VITALS: BP 126/83
--- NOTE | 2020-08-10 21:58 | Diagnostic Imaging Report ---
INDICATION: Reintubated. TECHNIQUE: Single view chest 9:31 PM. CORRELATION STUDY: 08/10/2020 FINDINGS: Endotracheal tube has been placed and/or repositioned. Tip is now located over the mid trachea, below the clavicles and above the lion. Gastric tube passes below the left hemidiaphragm. Right-sided central line tip at the right atrium. Heart size and mediastinum are stable. Pneumomediastinum persists. Subcutaneous gas over the neck and upper chest. Persistent opacification with 5 lobe infiltrate; however, this overall appears improved from prior. IMPRESSION: 1. Endotracheal tube tip now visualized, projecting over the trachea below the clavicles and above the lion. 2. Extensive 5 lobe infiltrate. Overall appearing improved. 3. Continued presence of pneumomediastinum and subcutaneous gas over the neck and upper chest. Dictated by: Dictated on workstation # [id number]
--- NOTE | 2020-08-10 22:05 | Anesthesia-Procedure Note ---
Procedures/Interventions Procedure Start/Stop/Diagnosis Date of Procedure: Aug 10, 2020 Start Time: 21:10 Preprocedural Diagnosis: covid 19; unstable ett Brief History Originally consulted to ICU 9 for arterial line placement. Upon arriving to room, patient's SaO2 91-92% with audible leak heard. RN concerned that ett is too high and needs advanced as per CXR from 1530 today. Patient was intubated ar ound 1130 this am. New CXR recently obtained and EICU physician called with orders to either advance or replace ett as it can not be seen on CXR. Patient fairly awake, opens eyes and moving extremities. I explained to him what we were going to do with his ett and that we were going to sedate him. NIBP stable. Patient given Versed 5mg and Chapa blade inserted. Could visualize ett cuff overinflated. Removed 10 cc of air and could visualize vocal cords with cuff still slightly inflated above cords. Removed more air from cuff while watching via Chapa and once cuff was completely deflated, the ett was advanced easily. Patient coughed and RN was able to suction quite a bit of thick material (prior to advancing ett, unable to advance suction catheter down ett). Patient given Rocuronium 50mg to keep him from coughing and fighting against vent, and to assist with arterial line placement. SaO2 increased to 97-98% on 100% FiO2. Stat CXR obtained to confirm correct ett placement. RT and RN assisting the whole time. Next, 20g Arterial line placed in patient's left wrist x1 attempt. Opsite covering. Good waveform noted and correlates with NIBP. Reported off to RN. Stop Time: 21:49 Intubation Reason Intubation/Diagnosis: 8.0 ett evaluated and advanced through vocal cords Medications: Rocuronium (50 mg), Versed (5 mg) Positive End Tide CO2: Yes Breath Sounds after Intubation: bilateral-equal Intubation Complications: no complications Post Intubation Xray-done: Yes Arterial Line Arterial Line Catheter: 20G Type: Radial Location: Left Procedure: prepped, draped in sterile fashion, good wave-form was obtained, patient tolerated procedure well, no immediate complications, post procedure area cleaned, post procedure dressing applied KAILA MCNAMARA CRNA Aug 10, 2020 22:05
--- NOTE | 2020-08-10 23:00 | NUR ---
TIMELINE NOTE: 1919- DECREASE O2 SATURATION 86%. SOUND OF CUFF LEAK AROUND ET TUBE. DIMINISHED BREATH SOUNDS BILATERALLY. 1939- STAT CHEST XRAY TO CONFIRM TUBE PLACEMENT. 2029- CALLED NAIF TO HAVE DR. POMPA LOOK OVER CHEST XRAY. 2114- TREE SAPPER TO ROOM. ASSESSMENT TO ADVANCE AIRWAY. SPOKE WITH DR. POMPA ON THE PHONE, ALONG WITH THIS RN. 2116- 5 MG OF VERSED GIVEN. 2117- 50 MG OF ESPERANZA GIVEN. 2119- TUBE ADVANCED TO 29 AT LIP. 2121- XRAY. CONFIRM PLACEMENT.
[2020-08-10 23:27] LABS: ABG BASE EXCESS 0.4 MMOL/L (-2.5-2.5); ABG OXYGEN SATURATION 91 % (94-100); ABG PCO2 45 MMHG (35-45); ABG PH 7.36 (7.37-7.43); ABG PO2 74 MMHG (79-93); ABG TCO2 26.8 MMOL/L (21.0-31.0)
[2020-08-10 23:28] LABS: ALLENS TEST YES-POS; INSPIRED O2 100%; PATIENT TEMP 36.3; VENTILATOR YES
[2020-08-11] MEDS: D5 1/2 NS 1000 ML IV SOLUTION 1,000 ML IV SCH ×2 (00:36→23:30)
[2020-08-11] MEDS: fentaNYL DRIP PRE-MIX 250 ML IV SCH ×4 (02:16→20:20)
[2020-08-11] MEDS: PROPOFOL DRIP (ICU) 100 ML IV SCH ×6 (02:16→23:29)
[2020-08-11 02:29] VITALS: BP 126/83
[2020-08-11] MEDS: RT-ALBUTEROL INHALER HFA (VENTOLIN HFA) 18 GM IH SCH ×6 (02:29→23:32)
[2020-08-11 03:39] LABS: ABG OXYGEN SATURATION 92 % (94-100); ABG PCO2 46 MMHG (35-45); ABG PH 7.37 (7.37-7.43); ABG PO2 75 MMHG (79-93); ABG TCO2 27.1 MMOL/L (21.0-31.0)
[2020-08-11 03:40] LABS: BASOPHILS % (AUTO) 0 % (0-10); EOSINOPHILS % (AUTO) 0 % (0-10); HEMATOCRIT 41 % (40-54); HEMOGLOBIN 13.5 g/dL (13.3-17.7); LYMPHOCYTES # (AUTO) 0.3 10^3/uL (1.0-4.0); LYMPHOCYTES % (AUTO) 1 % (12-44); MEAN CORPUSCULAR HEMOGLOBIN 31 pg (25-34); MEAN CORPUSCULAR HGB CONC 33 g/dL (32-36); MEAN CORPUSCULAR VOLUME 94 fL (80-99); MEAN PLATELET VOLUME 10.1 fL (9.0-12.2); MONOCYTES # (AUTO) 0.3 10^3/uL (0.0-1.0); MONOCYTES % (AUTO) 1 % (0-12); NEUTROPHILS # (AUTO) 26.4 10^3/uL (1.8-7.8); NEUTROPHILS % (AUTO) 97 % (42-75); PLATELET COUNT 367 10^3/uL (130-400); WHITE BLOOD COUNT 27.3 10^3/uL (4.3-11.0)
[2020-08-11 03:42] LABS: ALLENS TEST ART LINE; INSPIRED O2 100%; VENTILATOR YES
[2020-08-11 04:06] LABS: CHLORIDE 103 MMOL/L (98-107); POTASSIUM 4.8 MMOL/L (3.6-5.0); SODIUM 136 MMOL/L (135-145)
[2020-08-11 04:08] LABS: GLUCOSE 161 MG/DL (70-105)
[2020-08-11 04:09] LABS: CARBON DIOXIDE 22 MMOL/L (21-32)
[2020-08-11 04:11] LABS: PHOSPHORUS 2.8 MG/DL (2.3-4.7)
[2020-08-11 04:12] LABS: BUN/CREATININE RATIO 29; CREATININE SERUM 1.11 MG/DL (0.60-1.30); GFR ESTIMATED > 60
[2020-08-11 04:14] LABS: MAGNESIUM 2.4 MG/DL (1.6-2.4)
--- NOTE | 2020-08-11 04:39 | Pulmonary Progress Note ---
Subjective Time Seen by a Provider: 04:34 Subjective/Events-last exam Pt is sedated on vent. Sepsis Event Evaluation Height, Weight, BMI Height: 5'9.00" Weight: 198lbs. oz. 89.980100zl; 29.00 BMI Method:Stated Focused Exam Lactate Level 08/10/20 03:08: Lactic Acid Level 2.00 Exam Exam Vital Signs Date Time Temp Pulse Resp B/P (MAP) Pulse Ox O2 Delivery O2 Flow Rate FiO2 08/11/20 03:31 36.9 08/11/20 02:29 82 26 92 100 08/11/20 02:16 78 100/57 08/11/20 02:00 70 21 92 Mechanical Ventilator 100.00 08/11/20 01:00 75 08/11/20 01:00 75 24 92 Mechanical Ventilator 100.00 08/11/20 00:00 75 18 92 Mechanical Ventilator 100.00 08/11/20 00:00 36.2 Mechanical Ventilator 100.00 08/10/20 23:12 72 08/10/20 23:00 75 22 91 Mechanical Ventilator 100.00 08/10/20 22:34 92 08/10/20 22:31 Mechanical Ventilator 100.00 08/10/20 22:00 76 23 96 Mechanical Ventilator 75.00 08/10/20 21:52 86 24 95 75 08/10/20 21:50 Mechanical Ventilator 75.00 08/10/20 21:00 74 21 135/90 92 Mechanical Ventilator 100.00 08/10/20 21:00 93 Mechanical Ventilator 100 08/10/20 20:22 35.9 Mechanical Ventilator 100.00 08/10/20 20:06 74/64 08/10/20 20:00 67 24 94/81 89 Mechanical Ventilator 100.00 08/10/20 19:02 64 26 90 100 08/10/20 19:00 66 08/10/20 19:00 66 22 107/77 88 Mechanical Ventilator 100.00 08/10/20 18:34 67 120/75 08/10/20 18:00 64 24 107/80 92 Mechanical Ventilator 100.00 08/10/20 17:00 58 24 120/79 91 Mechanical Ventilator 100.00 08/10/20 16:00 60 24 121/79 94 Mechanical Ventilator 100.00 08/10/20 15:00 71 19 121/81 88 Mechanical Ventilator 100.00 08/10/20 14:31 69 31 88 100 08/10/20 14:00 67 28 109/75 87 Mechanical Ventilator 100.00 08/10/20 13:40 58 101/77 08/10/20 13:00 71 17 101/77 97 Mechanical Ventilator 100.00 08/10/20 12:04 100 08/10/20 12:00 105 31 149/102 97 Mechanical Ventilator 100.00 08/10/20 11:45 36.8 62 98 100 08/10/20 11:36 98 24 96 100 08/10/20 11:30 Mechanical Ventilator 100.00 08/10/20 11:00 73 28 139/88 97 NIV Bilevel 70.00 08/10/20 10:00 62 26 147/93 93 NIV Bilevel 70.00 08/10/20 09:00 64 41 128/83 95 NIV Bilevel 70.00 08/10/20 09:00 91 NIV Bilevel 70 08/10/20 08:23 36.8 08/10/20 08:00 62 28 107/67 93 NIV Bilevel 70.00 08/10/20 07:50 59 08/10/20 07:49 57 29 90 70.00 08/10/20 07:00 68 31 117/76 92 NIV Bilevel 70.00 08/10/20 06:00 61 29 106/72 94 NIV Bilevel 70.00 08/10/20 05:53 68 101/70 92 NIV Bilevel 70.00 08/10/20 05:52 NIV Bilevel 70.00 08/10/20 05:00 60 26 92 NIV Bilevel 50.00 I & O 08/11/20 07:00 Intake Total 1450 ml Output Total 1425 ml Balance 25 ml Height & Weight Height: 5'9.00" Weight: 198lbs. oz. 89.043700ac; 29.00 BMI Method:Stated General Appearance: WD/WN, Other (sedated on vent. ) HEENT: PERRL/EOMI, Pharynx Normal Neck: Non Tender, Supple Respiratory: Crackles (Bilateral versus), Decreased Breath Sounds, Respiratory Distress Cardiovascular: No Murmur, Tachycardia Capillary Refill: Less Than 3 Seconds Gastrointestinal: soft Extremity: Normal Range of Motion, Non Tender Skin: Normal Color, Warm/Dry Lymphatic: No Adenopathy Results Lab Laboratory Tests 08/10/20 03:08 08/11/20 03:24 Assessment/Plan Assessment/Plan Acute respiratory failure secondary to COVID PNA with ARDS -- sputum is growing Klebsiella and enterobacter --08/11 Change Zoysn to Merrem secondary to worsening leukocytosis -EICU managed through the night. -Remdesivir - Intubated 08/10 -Continue to Prone -Decadron -Lovenox- Theraputic dosing secondary to DDIMer elevation -s/p CVP pneumomediastinum - continue to monitor -Currently on PEEP of 10 -Continue to monitor Update 1130: Discussed with Adia and then Nory ('s sister) I explained pt's current condition and medical treatment. I answered all questions to the best of my ability. Update 1420: Family requesting transfer for possible ecmo.Discussed with [facility] and they will evaluate for possible transfer. Critical Care: Critically Ill Patient Time spent with patient (mins): 60 LEONARDO FAIRBANKS DO Aug 11, 2020 04:39
[2020-08-11 04:53] LABS: ALBUMIN 2.9 GM/DL (3.2-4.5)
[2020-08-11 04:55] LABS: TOTAL PROTEIN 6.1 GM/DL (6.4-8.2)
[2020-08-11 04:57] LABS: BILIRUBIN,TOTAL 1.2 MG/DL (0.1-1.0)
[2020-08-11 04:58] LABS: ALKALINE PHOSPHATASE 70 U/L (40-136)
[2020-08-11 05:02] LABS: ALANINE AMINOTRANSFERASE 35 U/L (0-55)
[2020-08-11] MEDS ORDERED: CISATRACURIUM 2MG/ML (NIMBEX) 10ML VIAL IV ONE (05:30)
[2020-08-11] MEDS: PIPERACILLIN/TAZOBACTAM (BULK) 4.5 GM in NS (IVPB) 100 ML IV SCH (05:56)
[2020-08-11] MEDS: POTASSIUM CL 10MEQ/50ML IVPB 50 ML IV SCH (05:58)
[2020-08-11] MEDS: MAGNESIUM 1 GM/100 ML IVPB 100 ML IV SCH (05:58)
[2020-08-11] MEDS: inSUlin ASPART (NovoLOG) 1 UNIT/0.01 ML (CHARGE PER UNIT) SQ SCH ×3 (05:58→18:15)
[2020-08-11] MEDS: KCL 20 MEQ TAB (K-DUR) PO SCH (05:58)
[2020-08-11] MEDS: MIDAZOLAM DRIP PRE-MIX 100 ML IV SCH ×2 (05:58→23:31)
--- NOTE | 2020-08-11 08:01 | Physical Therapy Progress Note ---
Therapy Progress Note Patient continues to be sedated and ventilated, will monitor and start evaluation when appropriate. RAFAEL STEWART PT Aug 11, 2020 08:01
[2020-08-11 08:05] VITALS: BP 126/83
[2020-08-11] MEDS: BENZONATATE 100 MG (TESSALON) CAPSULE PO SCH ×2 (08:06→12:12)
[2020-08-11] MEDS ORDERED: MIDAZOLAM 5 MG/5 ML (VERSED) VIAL INJ ONE (08:08)
[2020-08-11] MEDS ORDERED: ROCURONIUM 10 MG/ML 5 ML SYRINGE IV ONE (08:08)
--- NOTE | 2020-08-11 08:11 | Occ Therapy Progress Note ---
Therapy Progress Note Pt. sedated and on mechanical ventilation. Will continue to monitor and assess when medically ready. NIGEL DEL RIO OT Aug 11, 2020 08:11
--- NOTE | 2020-08-11 08:36 | Diagnostic Imaging Report ---
Indication: Hypoxia COMPARISON: 08/10/2020 TECHNIQUE: Single radiograph chest dated 08/11/2020. FINDINGS: Endotracheal tube, enteric catheter, and right-sided PICC line are again identified. Cardiac silhouette is stable. Pulmonary vasculature is predominantly obscured. Extensive bilateral pulmonary infiltrates are again identified, appearing slightly worsened since the prior examination. Pneumomediastinum is again seen, appearing similar to the prior exam. Subcutaneous emphysema within the lower neck is also stable from the prior exam. No significant pleural effusion. No large volume pneumothorax. Osseous structures appear stable. IMPRESSION: Slightly worsened extensive bilateral pulmonary infiltrates. Persistent pneumomediastinum and subcutaneous emphysema. Unchanged lines and tubes. Dictated by: Dictated on workstation # [id number]
[2020-08-11] MEDS: ENOXAPARIN 80 MG/0.8 ML (LOVENOX) SYR SC SCH ×2 (09:19→21:25)
[2020-08-11] MEDS: PANTOPRAZOLE 40 MG (PROTONIX) VIAL IV SCH (09:19)
[2020-08-11] MEDS: NOREPINEPHRINE 4 MG/250 ML 250 ML IV SCH ×3 (09:25→23:28)
[2020-08-11] MEDS: MEROPENEM 500 MG/SWFI 10 ML IV PUSH IV SCH ×6 (10:12→21:25)
[2020-08-11 10:19] VITALS: BP 90/51
[2020-08-11] MEDS: CISATRACURIUM INJECTION 100 MG in NS (IVPB) 200 ML IV SCH ×2 (13:41→19:34)
[2020-08-11 14:15] VITALS: BP 100/55
--- NOTE | 2020-08-11 14:45 | NUR ---
Patient to be proned today. Bony prominences cleansed, dried, no issues noted at this time. Allevyn patches applied to prominent pressure points for proning. heels, tops of feet, shins, knees, hips, shoulders, chin, cheeks, forehead. Lanolin applied to nares and to lips. Chin has large amount of hair growing at this time, chin allevyn does not attach well. RT helps by holding ETholder in place, while cheeks are patched. Pt's and family call in through video call bobby on patient's phone during this time. I explained the use of the preventive patches since we will be proning patient today. Family voices understanding. asks if patient can hear her; volume up on phone, enc. to continue to speak to patient, as vital signs remain stable when she is speaking to him. Phone set up on side table at 's request, so that she can see patient. Family continues to speak with patient when PT steps into room to perform PROM.
--- NOTE | 2020-08-11 15:08 | NUR ---
CM/SS: Attempt to visit with pt. Pt remains sedated and on the vent. His and family are face timing him with the assistance of the wound care nurse. Update is given on pt's current status. This worker will follow up.
--- NOTE | 2020-08-11 15:19 | NUR ---
During care rounds, initiation of TF were discussed. Would recommend Pulmocare 1.5 kcal at rate of 15ml/hr with 25ml water flushes q4h for hydration status and to prevent the tube from clogging. Will continue to follow and reassess as pt needs, intake, and status change. Dasha Frances MS RD LD [phone] (cell)
--- NOTE | 2020-08-11 15:49 | Physical Therapy Progress Note ---
Therapy Progress Note PROM B U/LE in available planes. CHARANJIT ALMANZAR PT Aug 11, 2020 15:49
--- NOTE | 2020-08-11 18:41 | NUR ---
THIS RN SPOKE WITH EICU REGARDING PT DECREASED URINE OUTPUT, DR STATED TO CONTINUE TO CLOSELY MONITOR URINE OUTPUT AND CALL BACK IF IT CONTINUE TO BE LOW.
[2020-08-11 18:59] VITALS: BP 103/59
[2020-08-11 23:41] VITALS: BP 126/83
[2020-08-12 01:51] VITALS: BP 126/83
[2020-08-12] MEDS: RT-ALBUTEROL INHALER HFA (VENTOLIN HFA) 18 GM IH SCH ×5 (01:51→20:07)
[2020-08-12 02:49] LABS: BASOPHILS % (AUTO) 0 % (0-10); EOSINOPHILS % (AUTO) 0 % (0-10); HEMATOCRIT 41 % (40-54); HEMOGLOBIN 13.3 g/dL (13.3-17.7); LYMPHOCYTES # (AUTO) 0.3 10^3/uL (1.0-4.0); LYMPHOCYTES % (AUTO) 1 % (12-44); MEAN CORPUSCULAR HEMOGLOBIN 31 pg (25-34); MEAN CORPUSCULAR HGB CONC 33 g/dL (32-36); MEAN CORPUSCULAR VOLUME 94 fL (80-99); MEAN PLATELET VOLUME 10.3 fL (9.0-12.2); MONOCYTES # (AUTO) 0.3 10^3/uL (0.0-1.0); MONOCYTES % (AUTO) 2 % (0-12); NEUTROPHILS # (AUTO) 20.4 10^3/uL (1.8-7.8); NEUTROPHILS % (AUTO) 96 % (42-75); PLATELET COUNT 355 10^3/uL (130-400); WHITE BLOOD COUNT 21.2 10^3/uL (4.3-11.0)
--- NOTE | 2020-08-12 03:01 | Pulmonary Progress Note ---
Subjective Time Seen by a Provider: 02:59 Subjective/Events-last exam Sedated on vent. Sepsis Event Evaluation Height, Weight, BMI Height: 5'9.00" Weight: 198lbs. oz. 89.539891ka; 29.00 BMI Method:Stated Focused Exam Lactate Level 08/10/20 03:08: Lactic Acid Level 2.00 Exam Exam Vital Signs Date Time Temp Pulse Resp B/P (MAP) Pulse Ox O2 Delivery O2 Flow Rate FiO2 08/12/20 02:50 Mechanical Ventilator 50.00 08/12/20 02:19 37.1 08/12/20 01:51 86 24 98 70 08/12/20 01:00 80 08/11/20 23:42 Mechanical Ventilator 70.00 08/11/20 23:41 89 24 94 65 08/11/20 23:31 93 08/11/20 23:29 90 08/11/20 23:29 36.9 Mechanical Ventilator 65.00 08/11/20 23:00 87 21 97 Mechanical Ventilator 75.00 08/11/20 22:00 84 23 97 Mechanical Ventilator 75.00 08/11/20 21:57 97 Mechanical Ventilator 75 08/11/20 21:40 Mechanical Ventilator 75.00 08/11/20 21:00 86 21 97 Mechanical Ventilator 85.00 08/11/20 20:00 94 23 97 Mechanical Ventilator 85.00 08/11/20 19:43 36.9 08/11/20 19:18 Mechanical Ventilator 85.00 08/11/20 19:00 87 24 98 Mechanical Ventilator 90.00 08/11/20 19:00 90 08/11/20 18:59 87 28 98 90 08/11/20 18:15 102/64 08/11/20 18:00 86 9 96 Mechanical Ventilator 90.00 08/11/20 17:00 85 15 96 Mechanical Ventilator 90.00 08/11/20 16:00 36.7 08/11/20 16:00 87 21 99 Mechanical Ventilator 90.00 08/11/20 15:00 77 23 93 Mechanical Ventilator 90.00 08/11/20 14:26 90.00 08/11/20 14:15 87 24 92 90 08/11/20 14:00 82 28 93 Mechanical Ventilator 100.00 08/11/20 13:00 87 37 94 Mechanical Ventilator 100.00 08/11/20 12:38 85 08/11/20 12:20 123/72 08/11/20 12:19 123/75 08/11/20 12:00 89 27 93 Mechanical Ventilator 100.00 08/11/20 11:00 87 25 92 Mechanical Ventilator 100.00 08/11/20 10:19 90 28 91 100 08/11/20 10:00 91 50 92 Mechanical Ventilator 100.00 08/11/20 09:28 103/62 08/11/20 09:00 87 34 93 Mechanical Ventilator 100.00 08/11/20 08:05 85 28 92 100 08/11/20 08:00 37.0 08/11/20 08:00 93 Mechanical Ventilator 100 08/11/20 08:00 85 16 92 Mechanical Ventilator 100.00 08/11/20 07:24 81 08/11/20 07:00 82 24 95 Mechanical Ventilator 100.00 08/11/20 06:00 85 24 90 Mechanical Ventilator 100.00 08/11/20 05:59 72 08/11/20 05:58 89 08/11/20 05:00 96 24 91 Mechanical Ventilator 100.00 08/11/20 04:00 97 22 91 Mechanical Ventilator 100.00 08/11/20 03:31 36.9 08/11/20 03:00 82 21 90 Mechanical Ventilator 100.00 I & O 08/12/20 07:00 Intake Total 90 ml Output Total 1905 ml Balance -1815 ml Height & Weight Height: 5'9.00" Weight: 198lbs. oz. 89.014871vn; 29.00 BMI Method:Stated General Appearance: WD/WN, Other (sedated on vent. ) HEENT: PERRL/EOMI, Pharynx Normal Neck: Non Tender, Supple Respiratory: Crackles (Bilateral versus), Decreased Breath Sounds, Respiratory Distress Cardiovascular: No Murmur, Tachycardia Capillary Refill: Less Than 3 Seconds Gastrointestinal: soft Extremity: Normal Range of Motion, Non Tender Skin: Normal Color, Warm/Dry Lymphatic: No Adenopathy Results Lab Laboratory Tests 08/10/20 03:08 08/11/20 03:24 Assessment/Plan Assessment/Plan Acute respiratory failure secondary to COVID PNA with ARDS -- sputum is growing Klebsiella and enterobacter -Intubated 08/10 --08/11 Change Zosyn to Merrem secondary to worsening leukocytosis -Pt is doing better today. He is currently proned and down to 50% Fi02. Peep is still at 10. -EICU managed through the night. -s/p Remdesivir -Continue to Prone -Decadron -Lovenox- Theraputic dosing secondary to DDIMer elevation -s/p CVP pneumomediastinum - continue to monitor -Currently on PEEP of 10 -Continue to monitor Discussed with [facility] and after we updated pt on current status with pt requiring only 50% oxygen with 10 of PEEP they declined transfer. I attempted to call however no answer. Critical Care: Critically Ill Patient Time spent with patient (mins): 60 LEONARDO FAIRBANKS DO Aug 12, 2020 03:01
[2020-08-12 03:10] LABS: ABG BASE EXCESS 2.1 MMOL/L (-2.5-2.5); ABG OXYGEN SATURATION 84 % (94-100); ABG PCO2 44 MMHG (35-45); ABG PH 7.39 (7.37-7.43); ABG PO2 57 MMHG (79-93); ABG TCO2 27.9 MMOL/L (21.0-31.0)
[2020-08-12 03:23] LABS: BUN/CREATININE RATIO 27; CALCIUM 8.4 MG/DL (8.5-10.1); CARBON DIOXIDE 22 MMOL/L (21-32); CHLORIDE 103 MMOL/L (98-107); CREATININE SERUM 1.05 MG/DL (0.60-1.30); GFR ESTIMATED > 60; GLUCOSE 151 MG/DL (70-105); MAGNESIUM 2.7 MG/DL (1.6-2.4); PHOSPHORUS 2.5 MG/DL (2.3-4.7); POTASSIUM 4.8 MMOL/L (3.6-5.0); SODIUM 137 MMOL/L (135-145); TRIGLYCERIDES 233 MG/DL (<150)
[2020-08-12] MEDS: fentaNYL DRIP PRE-MIX 250 ML IV SCH ×4 (03:23→21:05)
[2020-08-12 03:25] LABS: INSPIRED O2 100%; VENTILATOR YES
[2020-08-12 03:26] LABS: PATIENT TEMP 37.1
--- NOTE | 2020-08-12 04:49 | Pulmonary Progress Note ---
Subjective Time Seen by a Provider: 04:45 Subjective/Events-last exam Pt is sedated on vent. Sepsis Event Evaluation Height, Weight, BMI Height: 5'9.00" Weight: 198lbs. oz. 89.396615qi; 29.00 BMI Method:Stated Focused Exam Lactate Level 08/10/20 03:08: Lactic Acid Level 2.00 Exam Exam Vital Signs Date Time Temp Pulse Resp B/P (MAP) Pulse Ox O2 Delivery O2 Flow Rate FiO2 08/12/20 03:00 90 26 97 Mechanical Ventilator 50.00 08/12/20 02:50 Mechanical Ventilator 50.00 08/12/20 02:19 37.1 08/12/20 02:00 86 22 96 Mechanical Ventilator 70.00 08/12/20 01:51 86 24 98 70 08/12/20 01:00 80 08/12/20 01:00 84 26 98 Mechanical Ventilator 70.00 08/12/20 00:00 77 25 98 Mechanical Ventilator 70.00 08/11/20 23:42 Mechanical Ventilator 70.00 08/11/20 23:41 89 24 94 65 08/11/20 23:31 93 08/11/20 23:29 90 08/11/20 23:29 36.9 Mechanical Ventilator 65.00 08/11/20 23:00 87 21 97 Mechanical Ventilator 75.00 08/11/20 22:00 84 23 97 Mechanical Ventilator 75.00 08/11/20 21:57 97 Mechanical Ventilator 75 08/11/20 21:40 Mechanical Ventilator 75.00 08/11/20 21:00 86 21 97 Mechanical Ventilator 85.00 08/11/20 20:00 94 23 97 Mechanical Ventilator 85.00 08/11/20 19:43 36.9 08/11/20 19:18 Mechanical Ventilator 85.00 08/11/20 19:00 87 24 98 Mechanical Ventilator 90.00 08/11/20 19:00 90 08/11/20 18:59 87 28 98 90 08/11/20 18:15 102/64 08/11/20 18:00 86 9 96 Mechanical Ventilator 90.00 08/11/20 17:00 85 15 96 Mechanical Ventilator 90.00 08/11/20 16:00 36.7 08/11/20 16:00 87 21 99 Mechanical Ventilator 90.00 08/11/20 15:00 77 23 93 Mechanical Ventilator 90.00 08/11/20 14:26 90.00 08/11/20 14:15 87 24 92 90 08/11/20 14:00 82 28 93 Mechanical Ventilator 100.00 08/11/20 13:00 87 37 94 Mechanical Ventilator 100.00 08/11/20 12:38 85 08/11/20 12:20 123/72 08/11/20 12:19 123/75 08/11/20 12:00 89 27 93 Mechanical Ventilator 100.00 08/11/20 11:00 87 25 92 Mechanical Ventilator 100.00 08/11/20 10:19 90 28 91 100 08/11/20 10:00 91 50 92 Mechanical Ventilator 100.00 08/11/20 09:28 103/62 08/11/20 09:00 87 34 93 Mechanical Ventilator 100.00 08/11/20 08:05 85 28 92 100 08/11/20 08:00 37.0 08/11/20 08:00 93 Mechanical Ventilator 100 08/11/20 08:00 85 16 92 Mechanical Ventilator 100.00 08/11/20 07:24 81 08/11/20 07:00 82 24 95 Mechanical Ventilator 100.00 08/11/20 06:00 85 24 90 Mechanical Ventilator 100.00 08/11/20 05:59 72 08/11/20 05:58 89 08/11/20 05:00 96 24 91 Mechanical Ventilator 100.00 I & O 08/12/20 07:00 Intake Total 90 ml Output Total 1905 ml Balance -1815 ml Height & Weight Height: 5'9.00" Weight: 198lbs. oz. 89.719028kg; 29.00 BMI Method:Stated General Appearance: WD/WN, Other (sedated on vent. ) HEENT: PERRL/EOMI, Pharynx Normal Neck: Non Tender, Supple Respiratory: Crackles (Bilateral versus), Decreased Breath Sounds, Respiratory Distress Cardiovascular: No Murmur, Tachycardia Capillary Refill: Less Than 3 Seconds Gastrointestinal: soft Extremity: Normal Range of Motion, Non Tender Skin: Normal Color, Warm/Dry Lymphatic: No Adenopathy Results Lab Laboratory Tests 08/11/20 03:24 08/12/20 02:21 Assessment/Plan Assessment/Plan Acute respiratory failure secondary to COVID PNA with ARDS -- sputum is growing Klebsiella and enterobacter -Intubated 08/10 --08/11 Change Zosyn to Merrem secondary to worsening leukocytosis -Pt is doing better today. He is currently proned and down to 50% Fi02. Peep is still at 10. -EICU managed through the night. -s/p Remdesivir -Continue to Prone -Decadron -Lovenox- Theraputic dosing secondary to DDIMer elevation -s/p CVP pneumomediastinum - continue to monitor -Currently on PEEP of 10 -Continue to monitor Discussed with [facility] and after we updated pt on current status with pt requiring only 50% oxygen with 10 of PEEP they declined transfer. I attempted to call however no answer. LEONARDO FAIRBANKS DO Aug 12, 2020 04:48
[2020-08-12] MEDS: MAGNESIUM 1 GM/100 ML IVPB 100 ML IV SCH (05:24)
[2020-08-12] MEDS: POTASSIUM CL 10MEQ/50ML IVPB 50 ML IV SCH (05:24)
[2020-08-12] MEDS: CISATRACURIUM INJECTION 100 MG in NS (IVPB) 200 ML IV SCH ×4 (05:24→22:45)
[2020-08-12] MEDS: KCL 20 MEQ TAB (K-DUR) PO SCH (05:25)
[2020-08-12] MEDS: NOREPINEPHRINE 4 MG/250 ML 250 ML IV SCH ×2 (05:25→15:04)
[2020-08-12] MEDS: inSUlin ASPART (NovoLOG) 1 UNIT/0.01 ML (CHARGE PER UNIT) SQ SCH ×4 (05:26→17:33)
[2020-08-12] MEDS: MEROPENEM 500 MG/SWFI 10 ML IV PUSH IV SCH ×8 (05:36→21:17)
[2020-08-12] MEDS: PROPOFOL DRIP (ICU) 100 ML IV SCH ×3 (05:36→16:45)
[2020-08-12] MEDS ORDERED: ROCURONIUM 10 MG/ML 5 ML SYRINGE IV ONE ×2 (05:47→06:00)
[2020-08-12 07:05] VITALS: BP 126/83
[2020-08-12 08:05] LABS: BAND NEUTROPHILS 0 %; BASOPHILS % (MANUAL) 0 %; EOSINOPHILS % (MANUAL) 0 %; LYMPHOCYTES % (MANUAL) 1 %; MONOCYTES % (MANUAL) 1 %; NEUTROPHILS % (MANUAL) 98 %; RBC MORPH NORMAL
--- NOTE | 2020-08-12 08:11 | Diagnostic Imaging Report ---
Indication: Respiratory distress Portable chest 7:26 AM ET tube projects over the trachea. NG tube projects over the stomach. Right upper extremity PICC line tip projects over the SVC. There are diffuse alveolar infiltrates in the lungs with relative sparing of the apices. There is no effusion or pneumothorax. IMPRESSION: Severe diffuse pulmonary infiltrates unchanged from the previous day. Dictated by: Dictated on workstation # [id number]
--- NOTE | 2020-08-12 08:23 | Occ Therapy Progress Note ---
Therapy Progress Note OT continues to monitor pt. Please send new OT orders when pt. is medically stable and ready for skilled treatment. Thank you for this referral. [id number] NIGEL DEL RIO OT Aug 12, 2020 08:23
[2020-08-12] MEDS: ENOXAPARIN 80 MG/0.8 ML (LOVENOX) SYR SC SCH ×2 (09:15→21:17)
[2020-08-12] MEDS: PANTOPRAZOLE 40 MG (PROTONIX) VIAL IV SCH (09:15)
[2020-08-12 10:20] VITALS: BP 103/52
--- NOTE | 2020-08-12 11:18 | NUR ---
CM DISCHARGE PLANNING: Dr. Zhu spoke with Dr. Martin at [facility] phone #[phone] and they have accepted the patient for transfer pending bed availability. I f/u with [facility] to confirm that they had everything that they needed and to confirm that we are just waiting on a phone call from them for a bed. They report that they will call us with a bed when available. No further needs from them. Primary care nurse Camilla reports that she has contacted the family and they are in agreement with transfer.
[2020-08-12 14:19] VITALS: BP 100/50
[2020-08-12] MEDS: MIDAZOLAM DRIP PRE-MIX 100 ML IV SCH (14:51)
--- NOTE | 2020-08-12 15:30 | NUR ---
During care rounds, it was noted that pt would be started on TF of Pulmocare at 15ml/hr with 25ml water flushes q4h when a pump was available. Will continue to follow and reassess as pt needs, intake, and status change. Dasha Frances, MS RD LD [phone] (cell)
[2020-08-12 20:07] VITALS: BP 110/62
[2020-08-13] MEDS: PROPOFOL DRIP (ICU) 100 ML IV SCH ×5 (00:04→22:16)
[2020-08-13] MEDS: inSUlin ASPART (NovoLOG) 1 UNIT/0.01 ML (CHARGE PER UNIT) SQ SCH ×4 (00:04→17:26)
[2020-08-13] MEDS: NOREPINEPHRINE 4 MG/250 ML 250 ML IV SCH ×4 (00:05→23:46)
[2020-08-13] MEDS: fentaNYL DRIP PRE-MIX 250 ML IV SCH ×5 (02:46→22:17)
[2020-08-13] MEDS: MIDAZOLAM DRIP PRE-MIX 100 ML IV SCH ×2 (02:47→13:59)
[2020-08-13] MEDS: RT-ALBUTEROL INHALER HFA (VENTOLIN HFA) 18 GM IH SCH ×6 (02:56→22:35)
[2020-08-13 02:57] VITALS: BP 104/52
--- NOTE | 2020-08-13 05:24 | NUR ---
Transfer center contacted this RN, updated on pt condition.
[2020-08-13 05:29] LABS: ABG BASE EXCESS 5.6 MMOL/L (-2.5-2.5); ABG OXYGEN SATURATION 98 % (94-100); ABG PCO2 49 MMHG (35-45); ABG PH 7.41 (7.37-7.43); ABG PO2 96 MMHG (79-93); ABG TCO2 31.7 MMOL/L (21.0-31.0); ALLENS TEST NEGATIVE; INSPIRED O2 100; PATIENT TEMP 36.8; VENTILATOR YES
[2020-08-13 05:30] LABS: BASOPHILS % (AUTO) 0 % (0-10); EOSINOPHILS % (AUTO) 0 % (0-10); HEMATOCRIT 35 % (40-54); HEMOGLOBIN 11.2 g/dL (13.3-17.7); LYMPHOCYTES # (AUTO) 0.2 10^3/uL (1.0-4.0); LYMPHOCYTES % (AUTO) 1 % (12-44); MEAN CORPUSCULAR HEMOGLOBIN 30 pg (25-34); MEAN CORPUSCULAR HGB CONC 32 g/dL (32-36); MEAN CORPUSCULAR VOLUME 94 fL (80-99); MEAN PLATELET VOLUME 10.1 fL (9.0-12.2); MONOCYTES # (AUTO) 0.4 10^3/uL (0.0-1.0); MONOCYTES % (AUTO) 2 % (0-12); NEUTROPHILS # (AUTO) 14.9 10^3/uL (1.8-7.8); NEUTROPHILS % (AUTO) 95 % (42-75); PLATELET COUNT 271 10^3/uL (130-400); WHITE BLOOD COUNT 15.6 10^3/uL (4.3-11.0)
[2020-08-13] MEDS: CISATRACURIUM INJECTION 100 MG in NS (IVPB) 200 ML IV SCH ×3 (05:35→17:26)
[2020-08-13] MEDS: MEROPENEM 500 MG/SWFI 10 ML IV PUSH IV SCH ×8 (05:35→22:16)
[2020-08-13 05:54] LABS: CHLORIDE 103 MMOL/L (98-107); POTASSIUM 4.9 MMOL/L (3.6-5.0); SODIUM 139 MMOL/L (135-145)
[2020-08-13 05:55] LABS: CALCIUM 7.7 MG/DL (8.5-10.1)
[2020-08-13 05:56] LABS: GLUCOSE 147 MG/DL (70-105); TRIGLYCERIDES 197 MG/DL (<150)
[2020-08-13 05:57] LABS: CARBON DIOXIDE 26 MMOL/L (21-32)
[2020-08-13 05:59] LABS: CREATININE SERUM 0.76 MG/DL (0.60-1.30); GFR ESTIMATED > 60; PHOSPHORUS 2.4 MG/DL (2.3-4.7)
[2020-08-13 06:00] LABS: BUN/CREATININE RATIO 32
[2020-08-13 06:02] LABS: MAGNESIUM 2.4 MG/DL (1.6-2.4)
[2020-08-13] MEDS: POTASSIUM CL 10MEQ/50ML IVPB 50 ML IV SCH (06:09)
[2020-08-13] MEDS: KCL 20 MEQ TAB (K-DUR) PO SCH (06:09)
[2020-08-13] MEDS: MAGNESIUM 1 GM/100 ML IVPB 100 ML IV SCH (06:09)
--- NOTE | 2020-08-13 07:25 | Diagnostic Imaging Report ---
Indication: Respiratory failure Portable chest 7:08 AM There is ET tube projects over the trachea. NG tube projects over the stomach. Right extremity PICC line tip projects over the SVC. There are diffuse alveolar infiltrates in the lungs. IMPRESSION: Severe diffuse alveolar infiltrates. No significant change from the previous day. Dictated by: Dictated on workstation # [id number]
[2020-08-13 07:59] VITALS: BP 114/60
[2020-08-13] MEDS: PANTOPRAZOLE 40 MG (PROTONIX) VIAL IV SCH (08:22)
[2020-08-13] MEDS: ENOXAPARIN 80 MG/0.8 ML (LOVENOX) SYR SC SCH ×2 (08:22→20:52)
--- NOTE | 2020-08-13 10:16 | Physical Therapy Progress Note ---
Therapy Progress Note PROM all extremities in supine. JAMES PRINCE PT Aug 13, 2020 10:16
[2020-08-13] MEDS: D5 1/2 NS 1000 ML IV SOLUTION 1,000 ML IV SCH (10:20)
--- NOTE | 2020-08-13 11:38 | NUR ---
Contacted [facility] bed control at this time and they report that they are still waiting for an ICU bed to open so that they can accept. Continue to wait for a bed. Attempted to notify the primary care nurse but was unable to make phone contact likely d/t nursing being with patient's. They can reach me at [phone] for any questions or if they need me to do anything else.
[2020-08-13 11:45] VITALS: BP 118/66
--- NOTE | 2020-08-13 11:55 | Progress Note - Hospitalist ---
Subjective HPI/CC On Admission Date Seen by Provider: Aug 13, 2020 Time Seen by Provider: 10:30 Subjective/Events-last exam Patient seen and examined [facility] has him on wait list Labs stable FiO2 90% Updated family on the phone via face time Updated Dr [facility] course per medical student: This patient was admitted on Aug 03 for suspected sepsis. He was found to be Covid + and was admitted to ICU. While there, he was on BIPAP and remdisivir. He required increasing amounts of oxygen. On Aug 10, he was intubated. Is still currently intubated and prone on Aug 13. He has not received PT or OT since the intubation. He was changed from zosyn to merrem. He is currently doing better on intubation. 10 PEEP and 50% oxygen required. He will continue to be monitored in ICU Objective Exam Vital Signs Vital Signs Date Time Temp Pulse Resp B/P (MAP) Pulse Ox O2 Delivery O2 Flow Rate FiO2 08/14/20 04:10 36.2 101 26 118/66 87 Mechanical Ventilator 100 08/14/20 00:00 80.00 Capillary Refill : Less Than 3 Seconds General Appearance: No Apparent Distress, WD/WN, Chronically ill Respiratory: Lungs Clear Cardiovascular: Regular Rate, Rhythm Results/Procedures Lab Patient resulted labs reviewed. Assessment/Plan Assessment and Plan Assess & Plan/Chief Complaint Assessment: COVID-19 PNA VDRF Plan: Maintain vent ECMO wait list [facility] CC: Suspected Sepsis Neurologic: Patient currently sedated No neurological injuries noted Patient is not currently mobile. Prone Cardiovascular: Currently on norepinepherine No known cardiac problems Blood pressure stable No cardiac findings on xray Respiratory: Currently on mechanical ventilator Prone PEEP of 10 Received remdesivir No pneumothorax seen on xray Xray shows severe diffuse alveolar infiltrates Gastrointestinal: No known GI history NG tube in place on xray No hepatic issues noted No known GI bleeds Renal/Genitourinary: Currently -450ml on daily fluid totals No saline being given IV at this time per med list pH 7.41/49/96 No electrolyte abnormalities per CMP Hematologic: Leukocytosis, WBC 15.6 HGB 11.2 D-Dimer 3.92 No DIC noted DVT prophylaxis Enoxaparin Endocrine: Glucose 147 this morning Insulin aspart- sliding scale protocol No noted hyper or hypothyroid No other known hormonal imbalanced noted. Infectious Disease: Covid + Zosyn changed to merrem This patient was admitted on Aug 03 for suspected sepsis. He was found to be Covid + and was admitted to ICU. While there, he was on BIPAP and remdisivir. He required increasing amounts of oxygen. On Aug 10, he was intubated. Is still currently intubated and prone on Aug 13. He has not received PT or OT since the intubation. He was changed from zosyn to merrem. He is currently doing better on intubation. 10 PEEP and 50% oxygen required. He will continue to be monitored in ICU Critical Care Critically Ill Patient Diagnosis/Problems Diagnosis/Problems (1) Pneumonia due to COVID-19 virus Status: Acute (2) Respiratory failure with hypoxia Status: Acute Qualifiers: Chronicity: acute Qualified Codes: J96.01 - Acute respiratory failure with hypoxia Clinical Quality Measures DVT/VTE Risk/Contraindication: Risk Factor Score Per Nursin RFS Level Per Nursing on Admit: 4+=Very High ANNE MENARD DO Aug 13, 2020 11:55
--- NOTE | 2020-08-13 13:13 | Progress Note ---
WILLIAM MCELROY MED STUDENT 08/13/20 1313: Progress Note CC: Suspected Sepsis Neurologic: Patient currently sedated No neurological injuries noted Patient is not currently mobile. Prone Cardiovascular: Currently on norepinepherine No known cardiac problems Blood pressure stable No cardiac findings on xray Respiratory: Currently on mechanical ventilator Prone PEEP of 10 Received remdesivir No pneumothorax seen on xray Xray shows severe diffuse alveolar infiltrates Gastrointestinal: No known GI history NG tube in place on xray No hepatic issues noted No known GI bleeds Renal/Genitourinary: Currently -450ml on daily fluid totals No saline being given IV at this time per med list pH 7.41/49/96 No electrolyte abnormalities per CMP Hematologic: Leukocytosis, WBC 15.6 HGB 11.2 D-Dimer 3.92 No DIC noted DVT prophylaxis Enoxaparin Endocrine: Glucose 147 this morning Insulin aspart- sliding scale protocol No noted hyper or hypothyroid No other known hormonal imbalanced noted. Infectious Disease: Covid + Zosyn changed to merrem This patient was admitted on Aug 03 for suspected sepsis. He was found to be Covid + and was admitted to ICU. While there, he was on BIPAP and remdisivir. He required increasing amounts of oxygen. On Aug 10, he was intubated. Is still currently intubated and prone on Aug 13. He has not received PT or OT since the intubation. He was changed from zosyn to merrem. He is currently doing better on intubation. 10 PEEP and 50% oxygen required. He will continue to be monitored in ICU Supervisory-Addendum Brief Verification & Attestation Participated in pt care: history, physical Personally performed: exam, history Care discussed with: other Procedures: n/a KRISTINE MENARD DO 08/14/20 0625: Supervisory-Addendum Brief Verification & Attestation Participated in pt care: history, MDM, physical Personally performed: exam, history, MDM, supervision of care Care discussed with: Medical Student Procedures: n/a Results interpretation: Verified all documentation Verification and Attestation of Medical Student E/M Service A medical student performed and documented this service in my presence. I reviewed and verified all information documented by the medical student and made modifications to such information, when appropriate. I personally performed the physical exam and medical decision making. Kristine Menard, Aug 14, 2020,06:24 WILLIAM MCELROY MED STUDENT Aug 13, 2020 13:13 KRISTINE MENARD DO Aug 14, 2020 06:25
--- NOTE | 2020-08-13 15:07 | NUR ---
During care rounds, it was noted that pt is currently receiving Pulmocare at rate of 15ml/hr with 25lm free water flushes q4h for hydration. Would recommend maintain at current rate this time. Will continue to follow and reassess as pt needs, intake, and status change. Dasha Frances, MS RD LD [phone] (cell)
[2020-08-13 15:26] VITALS: BP 108/64
[2020-08-13 18:46] VITALS: BP 126/83
[2020-08-13 22:36] VITALS: BP 126/83
[2020-08-14] MEDS: inSUlin ASPART (NovoLOG) 1 UNIT/0.01 ML (CHARGE PER UNIT) SQ SCH (01:05)
[2020-08-14] MEDS: MIDAZOLAM DRIP PRE-MIX 100 ML IV SCH (01:05)
[2020-08-14] MEDS: CISATRACURIUM INJECTION 100 MG in NS (IVPB) 200 ML IV SCH (01:56)
[2020-08-14] MEDS: PROPOFOL DRIP (ICU) 100 ML IV SCH ×2 (02:27→03:23)
[2020-08-14] MEDS: fentaNYL DRIP PRE-MIX 250 ML IV SCH (02:27)
[2020-08-14 02:45] VITALS: BP 126/83
[2020-08-14] MEDS: RT-ALBUTEROL INHALER HFA (VENTOLIN HFA) 18 GM IH SCH (02:45)
[2020-08-14 04:10] VITALS: BP 118/66
--- NOTE | 2020-08-14 04:17 | NUR ---
08/13/[address]win from [facility] transfer line [phone] notified this RN of bed assignment RM [id number]. Accepting physician Dr Johnson. 08/13/20 2327 hrs. [facility] accepted fixed wing transfer. Agnes Zheng Chief Flight RN [phone] given report on pt at this time. 08/13/[address] Lucas notified of transfer and requested to give Dr Johnson report. Dr Lucas agreed. 08/14/20 0018 hrs. [facility] () notified of accepting facility and flight arrangements. [facility] approved transfer at this time. 08/14/20 0152 hrs. This RN gave Luis Armando Fisher RN [phone] [facility] report at this time. 08/14/20 0312 hrs. [facility] arrives to pt RM [id number]. Pt transferred to stretcher, remains in prone position. Fentanyl, Versed, and Propofol transferred c patient. 08/14/20 0410 hrs. [facility] staff depart c patient. Pt SPO2 86% upon departure.
--- NOTE | 2020-08-14 06:59 | Discharge Summary ---
Discharge Summary Hospital Course Was the Problem List Reviewed?: Yes Problems/Dx: (1) Pneumonia due to COVID-19 virus Status: Acute (2) Respiratory failure with hypoxia Status: Acute Qualifiers: Qualified Codes: J96.01 - Acute respiratory failure with hypoxia Hospital Course Date of Admission: Aug 03, 2020 at 17:40 Admission Diagnosis : Family Physician/Provider: Chani Raza DO Date of Discharge: 08/14/20 Discharge Diagnosis: COVID-19 PNA, VDRF Hospital Course: This patient was admitted on Aug 03 for suspected sepsis. He was found to be Covid + and was admitted to ICU. While there, he was on BIPAP and remdisivir. He required increasing amounts of oxygen. On Aug 10, he was intubated. Is still currently intubated and prone on Aug 13. He has not received PT or OT since the intubation. He was changed from zosyn to merrem. He is currently doing better on intubation. 10 PEEP and 50% oxygen required. He will continue to be monitored in ICU. Patient was transferred for ECMO to [facility]. Labs and Pending Lab Test: Laboratory Tests 08/13/20 11:26: Glucometer 128H 08/13/20 17:22: Glucometer 141H 08/14/20 01:03: Glucometer 138H Microbiology 08/10/20 Gram Stain - Final, Complete 08/10/20 Sputum Culture - Final, Complete Enterobacter aerogenes 08/05/20 Urine Culture - Final, Complete NO GROWTH 08/03/20 Blood Culture - Final, Complete No growth Home Meds Active Reported Claritin (Loratadine) 10 Mg Tablet 10 Mg PO DAILY PRN Nasacort (Triamcinolone Acetonide) 10.8 Ml Carmen 1 Carmen NSEACH DAILY PRN Zinc 50 Mg Tablet 50 Mg PO DAILY Vitamin D3 (Cholecalciferol (Vitamin D3)) 25 Mcg Tablet 25 Mcg PO DAILY Vitamin C (Ascorbic Acid) 250 Mg Tab.chew 250 Mg PO DAILY Tylenol (Acetaminophen) 325 Mg Tablet 325-650 Mg PO Q6H PRN Aspirin EC (Aspirin) 81 Mg Tablet.dr 81 Mg PO DAILY Ventolin Hfa (Albuterol Sulfate) 18 Gm Hfa.aer.ad 2 Puff INH Q6H PRN Methylprednisolone Dose Pack (Methylprednisolone) 4 Mg Tab.ds.pk Mg PO UD FILLED 07-30-2020 #21/6 DAY SUPPLY Azithromycin 250 Mg Tablet 250 Mg PO DAILY FILLED 08-03-2020 #6 DAY SUPPLY Benzonatate 100 Mg Capsule 100 Mg PO Q8H PRN Assessment/Pt Instructions [facility] transfer for ECMO Discharge Planning: <30 minutes discharge planning Discharge Physical Examination Vital Signs Vital Signs Date Time Temp Pulse Resp B/P (MAP) Pulse Ox O2 Delivery O2 Flow Rate FiO2 08/14/20 04:10 36.2 101 26 118/66 87 Mechanical Ventilator 100 08/14/20 00:00 80.00 Allergies: Coded Allergies: No Known Drug Allergies (Unverified , 08/03/20) Discharge Summary Date of Admission Aug 03, 2020 at 17:40 Date of Discharge Aug 14, 2020 at 04:10 Discharge Diagnosis Assessment: COVID-19 PNA VDRF Plan: Maintain vent ECMO wait list [facility] CC: Suspected Sepsis Neurologic: Patient currently sedated No neurological injuries noted Patient is not currently mobile. Prone Cardiovascular: Currently on norepinepherine No known cardiac problems Blood pressure stable No cardiac findings on xray Respiratory: Currently on mechanical ventilator Prone PEEP of 10 Received remdesivir No pneumothorax seen on xray Xray shows severe diffuse alveolar infiltrates Gastrointestinal: No known GI history NG tube in place on xray No hepatic issues noted No known GI bleeds Renal/Genitourinary: Currently -450ml on daily fluid totals No saline being given IV at this time per med list pH 7.41/49/96 No electrolyte abnormalities per CMP Hematologic: Leukocytosis, WBC 15.6 HGB 11.2 D-Dimer 3.92 No DIC noted DVT prophylaxis Enoxaparin Endocrine: Glucose 147 this morning Insulin aspart- sliding scale protocol No noted hyper or hypothyroid No other known hormonal imbalanced noted. Infectious Disease: Covid + Zosyn changed to merrem This patient was admitted on Aug 03 for suspected sepsis. He was found to be Covid + and was admitted to ICU. While there, he was on BIPAP and remdisivir. He required increasing amounts of oxygen. On Aug 10, he was intubated. Is still currently intubated and prone on Aug 13. He has not received PT or OT since the intubation. He was changed from zosyn to merrem. He is currently doing better on intubation. 10 PEEP and 50% oxygen required. He will continue to be monitored in ICU (1) Pneumonia due to COVID-19 virus Status: Acute (2) Respiratory failure with hypoxia Status: Acute Qualifiers: Qualified Codes: J96.01 - Acute respiratory failure with hypoxia Clinical Quality Measures DVT/VTE Risk/Contraindication: Risk Factor Score Per Nursin RFS Level Per Nursing on Admit: 4+=Very High ANNE MENARD DO Aug 14, 2020 06:59
--- NOTE | 2020-08-16 14:44 | Physician Query Clarification ---
PQ-Further Specificity Admission/Discharge Admission Date: Aug 03, 2020 at 17:40 Discharge Date: Aug 14, 2020 at 04:10 Dr. Zhu, The medical record reflects the following clinical scenario: History/Risk Factors: Covid +, pneumonia, acute respiratory failure Clinical Findings: T 36.4, P 112, R 38, Lactic acid 2.19, hypoxia Treatment: Bipap, Mechanical ventilation ] Question: Can you further specify if the patient had acute respiratory failure with hypoxia or if the patient had ARDS per the clinical indicators above? Please document a response in the Progress Notes or Discharge Summary. 1. ARDS 2. Acute respiratory failure w/hypoxia 3. Other, with explanation of the clinical findings. 4. Clinically undetermined, no explanation for the clinical findings. PHYSICIAN RESPONSE Can you specify per above: 2 Please remember a lack of response to the above will prompt a phone page by CDI/Coding staff. In responding to this query, please exercise your independent professional judgment. The purpose of this communication is to more accurately reflect the complexity of your patients condition. The fact that a question is asked does not imply that any particular answer is desired or expected. Thank you for your timely response to this clarification. Requestors name: Malaika THIS PHYSICIAN QUERY FORM IS A PERMANENT PART OF THE MEDICAL RECORD MALAIKA CALI Aug 16, 2020 14:44 ANNE ZHU DO Aug 16, 2020 20:53
--- NOTE | 2020-08-16 14:53 | Physician Query Clarification ---
PQ-Conflicting Diagnosis Admission/Discharge Admission Date: Aug 03, 2020 at 17:40 Discharge Date: Aug 14, 2020 at 04:10 Dr. Zhu, The medical record reflects the following clinical scenario: History/Risk Factors: Covid +, pneumonia, acute respiratory failure Clinical Findings: T 36.4, P 112, R 38, Lactic acid 2.19 Treatment: Bipap, Mechanical ventilation, IV Piperacillin Question: Do you agree with the impression of the Sepsis per student Deni and navarro on DS in body or report This patient was admitted on Aug 03 for suspected s epsis. He was found to be Covid +. Please document a response in Progress Note or Discharge Summary. 1. Yes, patient had sepsis 2. No, sepsis ruled out. Patient with covid 3. Other, with explanation of clinical findings 4. Clinically undetermined, no explanation for clinical findings. PHYSICIAN RESPONSE Do you agree w/Consulting Dx?: Yes Please remember a lack of response to the above will prompt a phone page by CDI/Coding staff. In responding to this query, please exercise your independent professional judgment. The purpose of this communication is to more accurately reflect the complexity of your patients condition. The fact that a question is asked does not imply that any particular answer is desired or expected. Thank you for your timely response to this clarification. Requestors name: Melissa THIS PHYSICIAN QUERY FORM IS A PERMANENT PART OF THE MEDICAL RECORD MELISSA CALI Aug 16, 2020 14:53 ANNE ZHU DO Aug 16, 2020 20:54
== END 2020-08-14 04:10 | disposition short-term general hospital (02) | DRG 871 ==
LOC: EDUNIT# 15:40 → ER 15:42 → ICU 17:40 → EDLOC 17:40 → ICU 08-09 06:29
PROVIDERS: ADMIT Internal Medicine Critical Care Medicine; ATTEND Internal Medicine Critical Care Medicine
PROC: XW033E5 Introduction of Remdesivir Anti-infective into Peripheral Vein, Percutaneous Approach, New Technology Group 5 (ICD-10-PCS; principal; 2020-08-03)
PROC: XW13325 Transfusion of Convalescent Plasma (Nonautologous) into Peripheral Vein, Percutaneous Approach, New Technology Group 5 (ICD-10-PCS; 2020-08-03)
PROC: 5A09557 Assistance with Respiratory Ventilation, Greater than 96 Consecutive Hours, Continuous Positive Airway Pressure (ICD-10-PCS; 2020-08-05)
PROC: 5A1945Z Respiratory Ventilation, 24-96 Consecutive Hours (ICD-10-PCS; 2020-08-10)
PROC: 0BH17EZ Insertion of Endotracheal Airway into Trachea, Via Natural or Artificial Opening (ICD-10-PCS; 2020-08-10)
DX: A41.89 Other specified sepsis (principal); U07.1 COVID-19; J12.89 Other viral pneumonia; J96.01 Acute respiratory failure with hypoxia; E87.2 Acidosis; J98.2 Interstitial emphysema; F17.220 Nicotine dependence, chewing tobacco, uncomplicated; F41.9 Anxiety disorder, unspecified
CPT/HCPCS: 36415; 36569; 71045; 71250; 76937; 80048; 80053; 81000; 82728; 82805; 82962; 83605; 83735; 83880; 84100; 84145; 84478; 85007; 85025; 85027; 85379; 85610; 85730; 86141; 86900; 86901; 87040; 87070; 87077; 87081; 87088; 87186; 87205; 94002; 94003; 94640; 94660; 94664; 94799; 96361; 96365; 96372